=== PATIENT | female | born 1940 | race Caucasian/White ===

== ENCOUNTER 2024-02-11 15:49 | Inpatient (IN) | payer MEDICARE, BC, SELFPAY ==
[2024-02-11] VITALS (9 sets, daily range): BP systolic 90–130; BP diastolic 43–61; PULSE 70–83; BMI 22.8; BMI 21.8
--- NOTE | 2024-02-11 14:03 | ED.GENMED ---
History of Present Illness
General
Chief Complaint: Rectal Bleeding
Source: patient and family (Son)
Exam Limitations: none
Time Seen by Provider: 02/11/24 13:26
Nursing documentation reviewed up to this point in time: agreed with
Travel History
Have you had any contact with someone who has COVID-19?: No
Do you have any symptoms of coronavirus? Fever > 100 degrees, chills, cough, shortness of breath, sore throat, loss of taste or smell, muscle aches, or headache?: No
History of Present Illness
History of Present Illness:
83-year-old female with a past medical history of GERD, hemorrhoids, colitis, irritable bowel syndrome who presents to the emergency room from her assisted living facility at [facility]; she is accompanied by her son who presents for evaluation of
rectal bleeding. Patient notably had hip replacement after a hip fracture; this was done in [place] in early December, she spent a few weeks in rehab and returned back to her assisted living facility about 10 days ago. She presents today after an
episode of large-volume rectal bleeding this morning that was apparently witnessed by staff. Patient says she has had bleeding hemorrhoids in the past but usually small amount of blood today was apparently large-volume bright red blood mixed in
with stool. Sent to the emergency room for assessment. She has not had an additional episodes although she says during her initial bout she had multiple bowel movements while sitting on the toilet. She denies feeling dizzy, short of breath,
lightheaded. She does not have any chest pain. She does not have any abdominal pain. She denies being on any blood thinners. She denies any recent NSAID use; says that for pain control for her hip she has been using tramadol and Tylenol.
Past History
Past History
ED Past Medical History: GERD, Hypercholesterolemia and Other (Low back pain, osteoporosis, colitis, GERD, irritable bowel syndrome)
ED Past Surgical History: Gynecological
Patient has exhibited threatening behavior?: No
Social History
Tobacco: Non-smoker
Alcohol: None
Drug: None
Personal:
Living: assisted living
Employment: Retired
Family History
Family History: Other
Review of Systems
Review of Systems
Constitutional: Denies fever
Respiratory: Denies trouble breathing
Cardiac: Denies chest pain, palpitations or syncope
ABD/GI: Reports bloody stools; Denies abdominal pain, nausea or vomiting
: Denies flank pain
Musculoskeletal: Denies neck pain or back pain
Neurological: Denies dizzy, headache, weakness or numbness
Phy Exam
Physical Exam
Physical Exam:
General: Awake, alert, oriented x3; no acute distress
Head: Normocephalic, atraumatic
Eyes: Pale conjunctiva
Throat: Airway intact, handling secretions
Neck: Trachea midline, supple without meningismus
Lungs: Clear to auscultation bilaterally, no wheezing, rales, rhonchi
Heart: Tachycardic with regular rhythm, no murmurs, gallops, or rubs
Abd: Soft, non distended, nontender
Rectal: Patient has large external hemorrhoid no active bleeding, no stool in the rectal vault but there was some blood mixed with mucus
Neuro: No gross deficits
Skin: Somewhat pale, no rash
Extremities: Warm and well-perfused
Scores
Heart Failure Risk
Heart Failure Risk Score: Not Applicable
Heart Score for Chest Pain Patients
STEMI patient?: Not applicable
Withdrawal Assessment of Alcohol
Withdrawal Assessment Completed?: Not applicable
Course
Orders/Labs/Results
Orders:
Orders
02/11/24 14:09
Type+Screen Urgent
Complete Blood Count/With Diff Urgent
Comprehensive Metabolic Panel Urgent
PTT Urgent
Prothrombin Time Urgent
02/11/24 14:43
Blood Group&Type Urgent
BBK Wristband Number:
Abnormal Lab Results
02/11/24
14:09
RBC 3.23 L 10^6/uL
(4.20-5.40)
Hgb 9.2 L g/dL
(12.0-16.0)
Hct 28.6 L %
(37.0-47.0)
MCHC 32.2 L g/dL
(33.0-37.0)
Abs Immat Gran (auto) 0.1 H 10^3/uL
(0-0.05)
Absolute Neuts (auto) 7.6 H 10^3/uL
(1.4-6.5)
Absolute Lymphs (auto) 0.9 L 10^3/uL
(1.2-3.4)
Immature Gran % 1.0 H %
(0-0.5)
Neutrophils % 82.1 H %
(42.2-75.2)
Lymphocytes % 9.6 L %
(20.5-51.1)
BUN 28 H mg/dl
(7-17)
Glucose 122 H mg/dl
(70-99)
02/11/24 14:09
02/11/24 14:09
Vital Signs
Initial and Last Documented VS:
Initial Vital Signs
Temp Pulse Resp BP Pulse Ox
36.4 C 112 18 130/61 94
02/11/24 12:57 02/11/24 12:57 02/11/24 12:57 02/11/24 12:57 02/11/24 12:57
Last Documented Vital Signs
Temp Pulse Resp BP Pulse Ox
36.4 C 91 20 97/57 95
02/11/24 12:57 02/11/24 14:15 02/11/24 14:15 02/11/24 14:15 02/11/24 14:15
MDM/Problems Addressed
Differential Diagnosis Includes:
Lower GI bleed: Differential includes but not limited to hemorrhoidal bleed, diverticular bleed, AVM
MDM/Problems Addressed:
83-year-old female presents for evaluation of bright red blood per rectum this morning. Not on blood thinners. Tachycardic but normotensive otherwise normal vitals. Exam as above�on internal rectal exam she had no stool in the rectal vault but
did have some faint bright red blood mixed with mucus; she does have a large external hemorrhoid did not have any active bleeding noted. Plan to place an IV check labs including CBC and CMP, coags, type and screen. Will monitor closely reassess
after the above.
Labs reviewed: CBC shows anemia 9.2 down from prior value of 11.8 in 2021. Certainly her recent surgery could contribute to some anemia but given her GI bleeding today we will need to admit for monitoring of bleeding and serial hemoglobins. She is
above transfusion threshold at this point although she did come in with some mild tachycardia her heart rate is now in the 80s or 90s and she is normotensive�will hold on transfusion for now but I did consent patient for transfusion in case of need.
Case discussed with hospitalist for admission.
Chronic conditions affecting care:
Hemorrhoids
*Pulse Oximetry
Patient hypoxic: no
*Critical Care Note
Total Time (30-74mins, 75-104mins- exclusive of procedures): Not Applicable
Data Reviewed
Review of Other/Old Records Reveals: Labs and Records
Source: patient and family (Son)
Prescriptions/Medications Considered But Not Given:
Considered blood transfusion
Patient Management
Discussion with other providers: Hospitalist (Discussed with hospitalist)
Escalation/DeEscalation of care consider admission/obs:
Admission indicated
ED Attending Note
-
Portions of this chart may have been created with voice recognition software.� Occasional wrong word or��sound alike� substitutions may have occurred due to the inherent limitations of voice recognition software.
Discharge Plan
Departure
Patient Disposition: Admit
Date of Disposition: 02/11/24
Time of Disposition: 14:56
Admit to doctor: Divina
Presentation/result/management discussed w/ accepting MD/DO: Hospitalist
Discharge Problem:
Acute lower gastrointestinal bleeding
Prescriptions:
No Action
loperamide 2 MG capsule
2 mg PO Q4HPRN PRN (Reason: diarrhea)
acetaminophen [Tylenol Extra Strength] 500 MG tablet
1,000 mg PO Q6HPRN PRN (Reason: mild pain)
lisinopril 2.5 mg Tablet
2.5 mg PO DAILY
cholecalciferol (vitamin D3) 25 mcg (1,000 unit) Tablet
25 mcg PO DAILY
tramadol 50 mg tablet
50 mg PO BID PRN (Reason: hip pain)
Interventions
Interventions:
*Risk Screen - Suicide Last Done: 02/11/24 14:12
*General Assessment Last Done: 02/11/24 12:57
*Neglect/Abuse Screening Last Done: 02/11/24 14:12
*ED COVID-19 Vaccine History Last Done: 02/11/24 12:57
NS-Iyfxrg-Xbsatajqoy Assessment Last Done: 02/11/24 14:13
ED- Cardiac Assessment Last Done: 02/11/24 14:13
ED- Pulmonary Assessment Last Done: 02/11/24 14:13
[2024-02-11 14:32] LABS: % Basophils 0.2 % (0-2); % Eosinophils 0.3 % (0-6); % Lymphocytes 9.6 % (20.5-51.1); % Monocytes 6.8 % (1.7-9.3); % Neutrophils 82.1 % (42.2-75.2); Absolute Immature Granulocytes 0.1 10^3/uL (0-0.05); Absolute Lymphocytes 0.9 10^3/uL (1.2-3.4); Absolute Monocytes 0.6 10^3/uL (0.1-0.6); Absolute Neutrophils 7.6 10^3/uL (1.4-6.5); Hematocrit 28.6 % (37.0-47.0); Hemoglobin 9.2 g/dL (12.0-16.0); Mean Corp Hgb Conc. 32.2 g/dL (33.0-37.0); Mean Corpuscular Hgb 28.5 pg (27.0-31.0); Mean Corpuscular Volume 88.5 fL (81.0-99.0); Mean Platelet Volume 8.5 fL (7.4-10.4); Nucleated Red Blood Cells % 0 %; Platelet Count 369 10^3/uL (130-400); Red Blood Cell Count 3.23 10^6/uL (4.20-5.40); Red Cell Dist. Width 12.8 % (11.5-14.5); White Blood Cell Count 9.2 10^3/uL (4.8-10.8)
[2024-02-11 14:44] LABS: INR 1.06; PT 13.7 Sec (11.4-14.6)
[2024-02-11 14:45] LABS: APTT 29.4 Sec (23.4-35.0)
[2024-02-11 14:49] LABS: ALT (SGPT) 12 U/L (0-35); AST (SGOT) 18 U/L (14-36); Albumin 3.9 g/dl (3.5-5.0); Alkaline Phosphatase 75 U/L (38-126); Blood Urea Nitrogen 28 mg/dl (7-17); Calcium 9.8 mg/dl (8.4-10.2); Carbon Dioxide 29 mmol/L (22-30); Chloride 99 mmol/L (98-107); Estimated Creatinine Clearance 45 ml/min; Glucose 122 mg/dl (70-99); Potassium 3.5 mmol/L (3.5-5.1); Sodium 136 mmol/L (135-145); Total Bilirubin 0.5 mg/dl (0.2-1.3); Total Protein 6.7 g/dl (6.3-8.2); eGFR > 60.00
--- NOTE | 2024-02-11 15:09 | HPS.HSE ---
Addendum entered and electronically signed by Pino Alarcon DO 02/11/24 16:07:
Patient seen and examined and discussed with SITE MEDICAL DIRECTOR Brodie, and I agree with her note.
Gen-AAOx3, NAD, frail
HEENT-NC, AT, anicteric, clear oral mm
Neck-supple
CV-reg, no M, +S1/S2
Lungs-clear B/L
Abd-soft, NT, ND
Ext-no edema
Musculoskeletal-no cyanosis, clubbing
Skin-warm and dry, dry gangrene left heel
Neuro-grossly non-focal
Psych-calm, cooperative
Acute lower GI bleed -hemorrhoidal versus other etiology. Large external hemorrhoid noted by ED. Hemodynamically stable. Admit to MedSurg. Consult GI. Clear liquid diet.
Reportedly patient had a colonoscopy 5 years ago but was a poor prep and nondiagnostic. Information obtained by family.
Ideally should get her external hemorrhoid treated, can follow-up with colorectal surgery after discharge.
Acute blood loss anemia -suspect related to GI bleed as above. Hemoglobin 9.2. Will monitor. Transfuse if hemoglobin gets close to 7 or less.
Left heel dry gangrene/pressure wound -due to limited mobility. Check ABIs lower extremities. Consult podiatry and vascular surgery.
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 Mainly in the wheelchair.
Recent fall with left hip fracture -admitted to [facility] in December, required left total hip arthroplasty. Discharged to rehab on January 11, and recently discharged back to her assisted living facility.
Osteoporosis
Hyperlipidemia
GERD
IBS
DNR
Family updated on the phone.
Original Note:
Family Physician
-
Family Physician: ZAK Logan
Chief Complaint
-
Rectal bleed
History of Present Illness
83-year-old female with a past medical history of GERD, hemorrhoids, colitis, irritable bowel syndrome who presents to the emergency room from her assisted living facility at [facility] with bright red blood this morning. Patient denies any abdominal
pain nausea vomiting,. she denies feeling dizzy, short of breath, lightheaded.� She does not have any chest pain.� She denies being on any blood thinners.� She denies any recent NSAID use. Denies fever or chills, patient denies any dysuria
hematuria,
Hemoglobin 9.7. No active bleeding at this time. on internal rectal exam by ER physician ,she had no stool in the rectal vault but did have some faint bright red blood mixed with mucus
Admitting for further management
Medical History
Past Medical History
Past Medical History: Reports Other
Additional Past Medical History:
GERD
Hemorrhoid
Colitis
IBS
Past Surgical History: Reports Other
Additional Past Surgical History:
Left hip replacement
Hysterectomy
Social History
Tobacco: Non-smoker
Alcohol: None
Drug: None
Living: Alone
Family History
Family History: Not pertinent
Allergies / Home Medications
Allergies reflects when Allergies were last updated in [facility].
Home Medications with original date entered in [facility]
Allergy/Medication List:
Allergies
Allergy/AdvReac Type Severity Reaction Status Date / Time
aspirin Allergy Rectal Verified 02/11/24 13:01
Bleeding
Home Medications
acetaminophen 500 mg tablet (Tylenol Extra Strength) 1,000 mg PO Q6HPRN PRN mild pain 05/04/22
loperamide 2 mg capsule 2 mg PO Q4HPRN PRN diarrhea 05/04/22
cholecalciferol (vitamin D3) 25 mcg (1,000 unit) tablet 25 mcg PO DAILY Supplement 02/11/24
lisinopril 2.5 mg tablet 2.5 mg PO DAILY Blood Pressure 02/11/24
tramadol 50 mg tablet 50 mg PO BID PRN hip pain 02/11/24
Review of Systems
-
Constitutional: Reports No Symptoms
EENT: Reports No Symptoms
Respiratory: Reports No Symptoms
Cardiac: Reports No Symptoms
Abdomen/GI: Reports Bloody Stools
: Reports No Symptoms
Musculoskeletal: Reports No Symptoms
Skin: Reports No Symptoms
Neurological: Reports No Symptoms
Endocrine: Reports No Symptoms
Hematologic/Lymphatic: Reports No Symptoms
Psych: Reports No Symptoms
Physical Exam
Vital Signs
Vital Signs
Temp Pulse Resp BP Pulse Ox
97.6 F 85 23 99/55 93
02/11/24 12:57 02/11/24 15:00 02/11/24 15:00 02/11/24 15:00 02/11/24 14:45
Physical Exam
General: Well Developed, Well Nourished and No Apparent Distress
HEENT: NormoCephalic, Moist mucous membranes and Atraumatic
Respiratory: Clear
Cardiac: S1/S2 and Regular Rhythm; No Murmur or Rub
GI: Soft, Non Tender, Non Distended and Normal Bowel Sounds; No Organomegaly
Rectal: Deferred by Provider
Musculoskeletal: No Clubbing, No Cyanosis and No Edema
Skin: No Rash
Neuro: AO x 3 and Nonfocal/grossly intact
Psych: Calm
Laboratory Results
-
02/11/24 14:09
02/11/24 14:09
Laboratory Results
PT 13.7 Sec (11.4-14.6) 02/11/24 14:09
INR 1.06 02/11/24 14:09
APTT 29.4 Sec (23.4-35.0) 02/11/24 14:09
Total Bilirubin 0.5 mg/dl (0.2-1.3) 02/11/24 14:09
AST 18 U/L (14-36) 02/11/24 14:09
ALT 12 U/L (0-35) 02/11/24 14:09
Alkaline Phosphatase 75 U/L (38-126) 02/11/24 14:09
Data Reviewed
-
Lab Data: Labs Reviewed by me
Impression/Plan
-
# acute lower GI bleed
-History of large hemorrhoids
-Hemoglobin 9.2
-Continue to trend hemoglobin
-Clear liquid diet
-GI consulted
# Acute blood loss anemia likely from GI bleed versus recent hip replacement
-Hemoglobin 9.2
-Continue to monitor
-Transfuse if hemoglobin less than 7
-Patient consented in ER
# Essential hypertension
-Hypotensive in ER
-Continue lisinopril with hold parameters
# Recent left hip replacement
-Healing very well
-Tylenol, tramadol continued
-obtain medical records from [place]
-PT consult
#left heel necrotic wound
-wound, podiatry, vascular consulted
-obtaining BHARATI
# DVT prophylaxis
-SCD
# CODE STATUS
-DNR
--- NOTE | 2024-02-11 15:45 | CON.GI ---
Addendum entered and electronically signed by Rosalio Collier MD 02/11/24 20:05:
I saw and examined the patient.
The NATUROPATHIC PHYSICIAN's note was reviewed and I agree with the note.
painless rectal bleeding x1 - possible DD : hemorrhoids vs diverticular bleed etc
recent hip surgery
constipation/ diarrhea . hx of IBS
plan
continue monitor H/H
anusol HC suppository
clear liquid diet
if Hb stable and no bleeding ok to advance diet
Patient / patient's son would like to hold off on colonoscopy for now.
Original Note:
Consultation
-
Date/Time Consultation Requested: 02/11/24 161
Date/Time Consultation Performed: 02/11/24 164
Requesting Provider: Pino Alarcon DO
Performing Provider: ZAK Page, Rosalio Collier MD
Reason for Consultation: GI bleeding
Medical History
Chief Complaint / HPI
Chief Complaint: rectal bleeding
History of Present Illness:
Pt is a 83yo presents with hx colon polyps, sheldon's esophagus, HH, IBS, GERD, prior c-diff, colitis, with recent hip replacement about 3 weeks ago. She returned to [facility] assisted living about 1 week ago and now noted with onset of rectal
bleeding. Pt states she will see rectal bleeding about 1 time per week with small amount of blood on paper. This am was noted with blood in diaper and larger volume of blood in toilet than usual bleeding. Pt admits to some chronic diarrhea and
constipation but recent increased constipation with recent hip surgery.
Pt otherwise admits to some chronic dysphagia and few lbs wt gain with recent rehab stay. She denies current GERD, abdominal pain, or black stools. Last colonoscopy 2016(Dr. Dixon) with small adenoma and hemorrhoids. no evidence of microscopic
colitis. EGD 2016 sheldon's, repeat EGD 2019 Dr. Pizano- (reports not reviewed).
Past Medical History
Past Medical History: GERD, Renal Failure (renal stones), Psychiatric (depression/anxiety ) and Other (sheldon's esophagus, colon polyps, c-diff, headaches, osteoporosis, rectal bleeding, colitis, IBS, arthritis, hemorrhoids )
Past Surgical History: Gynecological (hysterectomy), Orthopedic (left hip replacement ) and Other (growth on nose removal)
Social History
Tobacco: Non-Smoker
Alcohol: None
Drug: None
Living: Assisted Living
Employment: Retired
Family History
Family History: Other (brother with some type of CA, no family hx colon Ca that she could recall)
Allergies / Home Medications
Allergy/AdvReac Type Severity Reaction Status Date / Time
aspirin Allergy Rectal Verified 02/11/24 13:01
Bleeding
Medication Instructions Recorded
acetaminophen 500 mg tablet 1,000 mg PO Q6HPRN PRN mild pain 05/04/22
(Tylenol Extra Strength)
loperamide 2 mg capsule 2 mg PO Q4HPRN PRN diarrhea 05/04/22
cholecalciferol (vitamin D3) 25 25 mcg PO DAILY Supplement 02/11/24
mcg (1,000 unit) tablet
lisinopril 2.5 mg tablet 2.5 mg PO DAILY Blood Pressure 02/11/24
tramadol 50 mg tablet 50 mg PO BID PRN hip pain 02/11/24
Review of Systems
-
History Source: Patient
Constitutional: Reports Weight Gain (few lbs gain with rehab)
EENT: Reports No Symptoms
Respiratory: Reports No Symptoms
Cardiac: Reports No Symptoms
Abdomen/GI: Reports Diarrhea, Constipated (recently worse ) and Bloody Stools
: Reports No Symptoms
Musculoskeletal: Reports Other (hip mild discomfort recovering from surgery)
Skin: Reports No Symptoms
Neurological: Reports No Symptoms
Endocrine: Reports No Symptoms
Hematologic/Lymphatic: Reports Bleeding
Vital Signs
Temp Pulse Resp BP Pulse Ox
97.6 F 85 23 99/55 93
02/11/24 12:57 02/11/24 15:00 02/11/24 15:00 02/11/24 15:00 02/11/24 14:45
Physical Exam
Exam
General: Well Developed, Well Nourished and No Apparent Distress
HEENT: Normocephalic and Anicteric
Respiratory: Clear
Cardiac: Regular Rhythm
GI: Soft, Non Tender and Non Distended
Rectal: Other (large hemorrhoids with red spot no active bleeding trace brown stool in rectal vault no impaction)
Genito-urinary: No Costovertebral Tender
Musculoskeletal: No Clubbing and No Cyanosis
Skin: Warm and Dry
Neuro: Awake, Alert and AO x 3
Psych: Calm
Results
WBC 9.2 10^3/uL (4.8-10.8) 02/11/24 14:09
Hgb 9.2 g/dL (12.0-16.0) L 02/11/24 14:09
Hct 28.6 % (37.0-47.0) L 02/11/24 14:09
MCV 88.5 fL (81.0-99.0) 02/11/24 14:09
Plt Count 369 10^3/uL (130-400) 02/11/24 14:09
Absolute Neuts (auto) 7.6 10^3/uL (1.4-6.5) H 02/11/24 14:09
PT 13.7 Sec (11.4-14.6) 02/11/24 14:09
INR 1.06 02/11/24 14:09
APTT 29.4 Sec (23.4-35.0) 02/11/24 14:09
Sodium 136 mmol/L (135-145) 02/11/24 14:09
Potassium 3.5 mmol/L (3.5-5.1) 02/11/24 14:09
Chloride 99 mmol/L (98-107) 02/11/24 14:09
Carbon Dioxide 29 mmol/L (22-30) 02/11/24 14:09
BUN 28 mg/dl (7-17) H 02/11/24 14:09
Creatinine 0.7 mg/dL (0.6-1.0) 02/11/24 14:09
Calcium 9.8 mg/dl (8.4-10.2) 02/11/24 14:09
Total Bilirubin 0.5 mg/dl (0.2-1.3) 02/11/24 14:09
AST 18 U/L (14-36) 02/11/24 14:09
ALT 12 U/L (0-35) 02/11/24 14:09
Alkaline Phosphatase 75 U/L (38-126) 02/11/24 14:09
Prior GI Procedures:
EGD: 2016 [facility], repeat EGD 2019 Dr. Pizano- (reports not reviewed).
colonoscopy 2017(Dr. Dixon) with small adenoma and hemorrhoids. no evidence of microscopic colitis.
Assessment / Plan
-
Pt is a 83yo presents with hx colon polyps, sheldon's esophagus, HH, IBS, GERD, prior c-diff, colitis, with recent hip replacement about 3 weeks ago. She returned to [facility] assisted living about 1 week ago and now noted with onset of rectal
bleeding. Pt states she will see rectal bleeding about 1 time per week with small amount of blood on paper. This am was noted with blood in diaper and larger volume of blood in toilet than usual bleeding. Pt admits to some chronic diarrhea and
constipation but recent increased constipation with recent hip surgery.
-rectal bleeding
-recent hip replacement
other medical problems:
-colon polyps
-barrrett's esophagus
-IBS
-GERD
-hx c-diff
-colitis
PLAN:
Etiology of bleeding related to local source as hemorrhoids with noted red spot in exam and recent constipation vs diverticular bleed vs other
will add anusol BID and Miralax daily
ok for clear diet monitor for recurrent bleeding overnight
trend hbg
cont PPI daily
if bleeding resolved OP follow with Dr. Pizano or Dr. Collier for sheldon's and IBS follow up
will follow
-
-
Thank you for consultation and allowing me to participate in the patient's care. Please call the transformation architect GI physician during the after hours with any questions or concerns.
--- NOTE | 2024-02-11 16:33 | CON.VAS ---
Addendum entered and electronically signed by Pete Ornelas III, MD 02/11/24 17:15:
This patient was seen and examined with ZAK Solares and ZAK Barillas. I agree with the history and physical exam as well as the assessment and plan. I have the following additions:
Necrotic left lateral heel ulcer
Appears to be pressure related
At rehab following hip replacement
On exam her foot is warm and pink
Easily palpable DP pulses bilaterally
Easily palpable popliteal pulses bilaterally
Robust Doppler signals at the PT location bilaterally, nonpalpable bilaterally
The left heel eschar is necrotic and dry
No wounds on the toes
No erythema
No drainage
No odor
Obtain lower extremity arterial studies in the vascular lab, arterial duplex/BHARATI/TBI
Prevalon boots at all times to both feet
Podiatry consult
Will follow along and make additional recommendations once studies are back
Signed:
Pete Ornelas III, MD
[facility] Vascular Surgery
[phone] (xabg)
Original Note:
Consultation
Consultation Request
Performing Provider: Johnson
Reason for Consultation: Heel wound eval
Medical History
-
Chief Complaint: GI bleed
History of Present Illness:
83-year-old female with a past medical history of GERD, colitis, irritable bowel syndrome who presents to the emergency room from her assisted living facility at [facility] with bright red blood this morning. Patient denies any abdominal pain nausea
vomiting. While being evaluated in the ER patient was noted to have a dry necrotic left heel dry wound. Vascular consult for this finding
Patient seen at bedside in the ER with Dr. Ornelas. Patient states she noticed the wound recently. They have had her in boots since noticing the wound. Patient denies history of PAD. Denies prior lower extremity interventions. Denies prior wounds
with difficulty healing.
Past Medical History
Past Medical History: Other (GERD, Hemorrhoid, Colitis, IBS)
Past Surgical History: Other (Left hip replacement, Hysterectomy)
Social History
Tobacco: Non-Smoker
Alcohol: None
Drug: None
Living: [facility] (s/p hip replacement)
Family History
Family History: Reviewed & Not Pertinent
Allergies / Home Medications
Allergy/AdvReac Type Severity Reaction Status Date / Time
aspirin Allergy Rectal Verified 02/11/24 13:01
Bleeding
Medication Instructions Recorded Confirmed Type
acetaminophen 500 mg tablet 1,000 mg PO Q6HPRN PRN mild pain 05/04/22 02/11/24 History
(Tylenol Extra Strength)
loperamide 2 mg capsule 2 mg PO Q4HPRN PRN diarrhea 05/04/22 02/11/24 History
cholecalciferol (vitamin D3) 25 25 mcg PO DAILY Supplement 02/11/24 02/11/24 History
mcg (1,000 unit) tablet
lisinopril 2.5 mg tablet 2.5 mg PO DAILY Blood Pressure 02/11/24 02/11/24 History
tramadol 50 mg tablet 50 mg PO BID PRN hip pain 02/11/24 02/11/24 History
Review of Systems
-
History Source: Patient
All other systems: Negative unless noted
Constitutional: Reports No Symptoms
EENT: Reports No Symptoms
Respiratory: Reports No Symptoms
Cardiac: Reports No Symptoms
Vascular: Denies Leg Pain / Claudication
Abdomen/GI: Reports No Symptoms
: Reports No Symptoms
Musculoskeletal: Reports No Symptoms
Skin: Reports Other (Left heel wound)
Neurological: Reports No Symptoms
Endocrine: Reports No Symptoms
Physical Exam
Vital Signs
Temp Pulse Resp BP Pulse Ox
97.6 F 93 13 100/45 93
02/11/24 12:57 02/11/24 16:15 02/11/24 16:15 02/11/24 16:00 02/11/24 14:45
Lab Results
02/11/24 14:09
02/11/24 14:09
Physical Exam
General: No Apparent Distress and Comfortable
HEENT: Normocephalic and Atraumatic
Respiratory: Non Labored Respirations
Cardiac: Negative JVD
GI: Soft, Non Tender and Non Distended
Musculoskeletal: No Clubbing, No Cyanosis and No Edema
Skin: Warm and Other (Left heel with dry necrosis size this over dollar)
Neuro: Awake, Alert and Oriented
Psych: Calm
Pulses: Bilateral Femoral: +2, Bilateral Popliteal: +2, Bilateral Dorsalis Pedis: Doppler and Bilateral Posterior Tibial: Doppler
Assessment / Plan
-
83-year-old female here with GI bleed, vascular consult for left heel necrotic wound
Plan:
-Arterial ultrasounds
-Will follow-up with plan after studies complete
-Elevate heels, heels will should be in Prevalon boots at all times unless ambulating
[2024-02-11] MEDS: MIRALAX PO (17:59)
[2024-02-11] MEDS: TYLENOL 1000 MG PO (19:12)
[2024-02-11] MEDS: NSS (PRESERVATIVE FREE) 10 ML IV (19:54)
[2024-02-11] MEDS: PROTONIX IV 40 MG IV (19:54)
[2024-02-11] MEDS: ANUSOL HC RECTAL (20:01)
--- NOTE | 2024-02-11 21:12 | W.PN.POD ---
Today's Communication
- Today's Communication
podiatry consult wound left heel
Assessment / Plan
- -
necrotic heel left foot lateral aspect
unstageable
keep foot elevated, keep pressure off heel
wear prevalon boots at all times
Suggest: darco pressure relief surgical shoe when ambulating
consult wound care for dressing
Subjective/Objective
- Subjective
patient evaluated in ER and wound left heel was noted
- Objective
Temp Pulse Resp BP Pulse Ox
98.3 F 83 18 101/51 95
02/11/24 20:00 02/11/24 20:00 02/11/24 20:00 02/11/24 20:00 02/11/24 20:00
02/11/24 14:09
Vital Signs and Lab results were reviewed.
eschar noted dark, necrotic and dry
left heel necrotic lateral aspect
lateral to posterior heel
no drainage
no infection or inflammation
unstageable, 1 1/2 in x 2 in.
due to pressure after left hip replacement
in rehab
pulses DP +1/4 PT +1/4 both feet
warm, no edema
[2024-02-11 21:34] LABS: Hematocrit 24.8 % (37.0-47.0); Hemoglobin 8.2 g/dL (12.0-16.0)
[2024-02-12 03:49] VITALS: BP 111/52; BP 99/52; PULSE 71
[2024-02-12 06:28] LABS: Hematocrit 27.2 % (37.0-47.0); Hemoglobin 8.8 g/dL (12.0-16.0); Mean Corp Hgb Conc. 32.4 g/dL (33.0-37.0); Mean Corpuscular Hgb 28.9 pg (27.0-31.0); Mean Corpuscular Volume 89.2 fL (81.0-99.0); Mean Platelet Volume 8.6 fL (7.4-10.4); Platelet Count 329 10^3/uL (130-400); Red Blood Cell Count 3.05 10^6/uL (4.20-5.40); Red Cell Dist. Width 12.8 % (11.5-14.5); White Blood Cell Count 6.9 10^3/uL (4.8-10.8)
[2024-02-12 06:52] LABS: Blood Urea Nitrogen 22 mg/dl (7-17); Carbon Dioxide 28 mmol/L (22-30); Chloride 100 mmol/L (98-107); Estimated Creatinine Clearance 53 ml/min; Glucose 102 mg/dl (70-99); Potassium 3.5 mmol/L (3.5-5.1); Sodium 135 mmol/L (135-145); eGFR > 60.00
[2024-02-12 07:45] VITALS: BP 115/57; BP 124/60; PULSE 74; PULSE 76
[2024-02-12] MEDS: COMPAZINE 5 MG IV (08:32)
[2024-02-12] MEDS: NSS (PRESERVATIVE FREE) 10 ML IV ×2 (08:32→20:26)
[2024-02-12] MEDS: ZESTRIL 2.5 MG PO (08:32)
[2024-02-12] MEDS: PROTONIX IV 40 MG IV ×2 (08:32→20:27)
[2024-02-12] MEDS: MIRALAX PO (08:36)
[2024-02-12] MEDS: ANUSOL HC 25 MG RECTAL ×2 (08:37→20:26)
[2024-02-12] MEDS: TYLENOL 1000 MG PO ×2 (10:14→17:43)
--- NOTE | 2024-02-12 10:23 | W.PN.HOSP.TC ---
Today's Communication/Plan
-
Monitor hemoglobin
Advance diet as tolerated
Await BHARATI
PT/OT
Assessment / Plan
Assessment / Plan
Gen-AAOx3, NAD
HEENT-NC, AT, anicteric, clear oral mm
Neck-supple
CV-reg, no M, +S1/S2
Lungs-clear B/L
Abd-soft, NT, ND
Ext-no edema
Musculoskeletal-no cyanosis, clubbing, bilateral Prevalon boots on legs
Skin-warm and dry
Neuro-grossly non-focal
Psych-calm, cooperative
Acute lower GI bleed -hemorrhoidal versus other etiology.� Large external hemorrhoid noted by ED.� Hemodynamically stable.� No further bleeding in the hospital as per nursing. Advance diet as tolerated. GI consult noted. Holding off on
colonoscopy per patient and family wishes.
Reportedly patient had a colonoscopy 5 years ago but was a poor prep and nondiagnostic.� Information obtained by family.
Ideally should get her external hemorrhoid treated, can follow-up with colorectal surgery after discharge.
Acute blood loss anemia -suspect related to GI bleed as above.� Hemoglobin 9.2 on admission, 8.8 this morning.
Left heel dry gangrene/pressure wound -due to limited mobility.� Check ABIs lower extremities.� Continue Prevalon boots, offloading. Vascular and podiatry input noted.
Functional paraplegia -suspect due to severe deconditioning, frailty, aging.� Mainly in the wheelchair.
Recent fall with left hip fracture -admitted to [facility] in December, required left total hip arthroplasty.� Discharged to rehab on January 11, and recently discharged back to her assisted living facility.
Osteoporosis
Hyperlipidemia
GERD
IBS
DNR
Dispo -anticipate discharge back to assisted living facility when stable. Await PT/OT.
Anticipated Discharge: 24 - 48 hours
Subjective/Interval History
-
Date of Service: February 12, 2024
Patient seen and examined. No complaints. Eager to start eating.
Objective Data
-
Labs:
Laboratory Results
02/12/24 02/12/24
05:48 13:00
WBC 6.9
Hgb 8.8 L Pending
Hct 27.2 L Pending
Plt Count 329
Sodium 135
Potassium 3.5
Chloride 100
Carbon Dioxide 28
BUN 22 H
Creatinine 0.6
Glucose 102 H
Calcium 9.0
Vital Signs:
Vital Signs
Temp Pulse Resp BP Pulse Ox
98.1 F 76 16 124/60 94
02/12/24 07:45 02/12/24 08:32 02/12/24 07:45 02/12/24 08:32 02/12/24 07:45
I&O
02/11/24 02/12/24 02/13/24
06:59 06:59 06:59
Intake Total 840 / 840
Balance 840 / 840
Review of Systems
-
History Source: Patient
All other systems: Reviewed and negative
[2024-02-12 11:30] VITALS: BP 123/58; BP 128/59; PULSE 82
[2024-02-12] MEDS: ULTRAM 50 MG PO (12:08)
--- NOTE | 2024-02-12 12:47 | W.PN.GI.CBS2 ---
Today's Communication / Plan
-
Advance diet
Assessment / Plan
-
Pt is a 83yo presents with hx colon polyps, sheldon's esophagus, HH, IBS, GERD, prior c-diff, colitis, with recent hip replacement about 3 weeks ago. She returned to [facility] assisted living about 1 week ago and now noted with onset of rectal
bleeding. Pt states she will see rectal bleeding about 1 time per week with small amount of blood on paper. This am was noted with blood in diaper and larger volume of blood in toilet than usual bleeding. Pt admits to some chronic diarrhea and
constipation but recent increased constipation with recent hip surgery.
-rectal bleeding x1 -�possible DD : hemorrhoids vs diverticular bleed etc
-recent hip replacement
other medical problems:
-colon polyps
-barrrett's esophagus
-IBS
-GERD
-hx c-diff
-colitis
PLAN:
Okay to advance diet
Continue anusol BID and Miralax daily
Avoid constipation
Reviewed with patient/patient's son yesterday-they would like to hold off on colonoscopy
OP follow with Dr. Pizano ( previous GI ) for sheldon's and IBS follow up
GI will sign off. Please call us back if any questions.
Total Time Spent with Patient (in minutes): 35
Subjective
Subjective
Date of Service: February 12, 2024
No further bleeding. Feeling better
Objective
Data Reviewed
Laboratory Data:
Laboratory Results
02/12/24 13:00
02/12/24 05:48
Laboratory Results
PT 13.7 Sec (11.4-14.6) 02/11/24 14:09
INR 1.06 02/11/24 14:09
APTT 29.4 Sec (23.4-35.0) 02/11/24 14:09
Total Bilirubin 0.5 mg/dl (0.2-1.3) 03/22/24 14:09
AST 18 U/L (14-36) 02/11/24 14:09
ALT 12 U/L (0-35) 02/11/24 14:09
Alkaline Phosphatase 75 U/L (38-126) 02/11/24 14:09
Vital Signs and I&O:
Vital Signs
Temp Pulse Resp BP Pulse Ox
98.3 F 82 16 128/59 96
02/12/24 11:30 02/12/24 11:30 02/12/24 11:30 02/12/24 11:30 02/12/24 11:30
I&O
02/11/24 02/12/24 02/13/24
06:59 06:59 06:59
Intake Total 840 / 840
Balance 840 / 840
Physical Exam
Physical Exam
GI: Soft, Non Distended and Non Tender
--- NOTE | 2024-02-12 13:53 | CM ---
Patient seen bedside, initial assessment completed. Patient reports she resides at [facility], reports using a wheelchair, walker, and rollator. Patient reports having PT/OT at [facility], history with SNF but cannot remember where.
Patient reports she has a son who lives in [place]. Patient confirms PCP Rafia Chavira but will be switching to a new PCP eventually, pharmacy [facility] on [address].
CM called [facility] to speak to patients nurse, informed that nurses are not here on weekends and to call back Wednesday morning. CM will continue to follow for discharge planning needs.
Plan; return to [facility], watch for PT/OT recommendations.
[2024-02-12 15:45] VITALS: BP 101/51; BP 108/53; PULSE 82; PULSE 83
[2024-02-12 19:35] VITALS: BP 106/53; BP 89/46; PULSE 86; PULSE 87
[2024-02-12 23:09] VITALS: BP 89/54; BP 96/52; PULSE 68; PULSE 70
[2024-02-13] VITALS (7 sets, daily range): BP systolic 107–124; BP diastolic 54–65; BMI 21.8
[2024-02-13] MEDS: NSS (PRESERVATIVE FREE) 10 ML IV (07:50)
[2024-02-13] MEDS: ZESTRIL 2.5 MG PO (07:50)
[2024-02-13] MEDS: ANUSOL HC 25 MG RECTAL ×2 (07:50→19:23)
[2024-02-13] MEDS: PROTONIX IV 40 MG IV (07:50)
[2024-02-13] MEDS: MIRALAX 17 GRAMS PO (07:50)
[2024-02-13 07:52] LABS: Hematocrit 26.8 % (37.0-47.0); Hemoglobin 8.5 g/dL (12.0-16.0); Mean Corp Hgb Conc. 31.7 g/dL (33.0-37.0); Mean Corpuscular Hgb 28.7 pg (27.0-31.0); Mean Corpuscular Volume 90.5 fL (81.0-99.0); Mean Platelet Volume 8.5 fL (7.4-10.4); Platelet Count 357 10^3/uL (130-400); Red Blood Cell Count 2.96 10^6/uL (4.20-5.40); Red Cell Dist. Width 12.7 % (11.5-14.5); White Blood Cell Count 6.2 10^3/uL (4.8-10.8)
[2024-02-13 08:25] LABS: Blood Urea Nitrogen 19 mg/dl (7-17); Calcium 9.2 mg/dl (8.4-10.2); Carbon Dioxide 29 mmol/L (22-30); Chloride 100 mmol/L (98-107); Estimated Creatinine Clearance 53 ml/min; Glucose 104 mg/dl (70-99); Potassium 3.7 mmol/L (3.5-5.1); Sodium 135 mmol/L (135-145); eGFR > 60.00
--- NOTE | 2024-02-13 09:29 | W.PN.HOSP.TC ---
Today's Communication/Plan
-
Continue current care
Assessment / Plan
Assessment / Plan
Gen-AAOx3, NAD
HEENT-NC, AT, anicteric, clear oral mm
Neck-supple
CV-reg, no M, +S1/S2
Lungs-clear B/L
Abd-soft, NT, ND
Ext-no edema
Musculoskeletal-no cyanosis, clubbing, bilateral Prevalon boots on legs
Skin-warm and dry
Neuro-grossly non-focal
Psych-calm, cooperative
Acute lower GI bleed -hemorrhoidal versus other etiology.� Large external hemorrhoid noted by ED.� Hemodynamically stable.� No further bleeding in the hospital as per nursing. Advance diet as tolerated. GI consult noted. Holding off on
colonoscopy per patient and family wishes.
Reportedly patient had a colonoscopy 5 years ago but was a poor prep and nondiagnostic.� Information obtained by family.
Ideally should get her external hemorrhoid treated, can follow-up with colorectal surgery after discharge.
Acute blood loss anemia -suspect related to GI bleed as above.� Hemoglobin 9.2 on admission, 8.5 this morning, relatively stable.
Left heel dry gangrene/pressure wound -due to limited mobility.� Check ABIs lower extremities.� Continue Prevalon boots, offloading. Vascular and podiatry input noted. Surgical shoe at bedside.
Functional paraplegia -suspect due to severe deconditioning, frailty, aging.� Mainly in the wheelchair.
Recent fall with left hip fracture -admitted to [facility] in December, required left total hip arthroplasty.� Discharged to rehab on January 11, and recently discharged back to her assisted living facility.
Osteoporosis
Hyperlipidemia
GERD
IBS
DNR
Dispo -ideally needs to go to SNF on discharge but she is refusing. Wants to go home tomorrow.
Anticipated Discharge: Within 24 hours
Subjective/Interval History
-
Date of Service: February 13, 2024
Patient seen and examined. Denies further bleeding. No complaints.
Objective Data
-
Labs:
Laboratory Results
02/13/24
06:55
WBC 6.2
Hgb 8.5 L
Hct 26.8 L
Plt Count 357
Sodium 135
Potassium 3.7
Chloride 100
Carbon Dioxide 29
BUN 19 H
Creatinine 0.5 L
Glucose 104 H
Calcium 9.2
Vital Signs:
Vital Signs
Temp Pulse Resp BP Pulse Ox
97.2 F 75 16 114/54 95
02/13/24 07:21 02/13/24 07:50 02/13/24 07:21 02/13/24 07:50 02/13/24 07:21
I&O
02/12/24 02/13/24 02/14/24
06:59 06:59 06:59
Intake Total 840 / 840 1020 / 1020
Balance 840 / 840 1020 / 1020
Review of Systems
-
History Source: Patient
All other systems: Reviewed and negative
--- NOTE | 2024-02-13 14:42 | CM ---
Addendum entered by Darling Healy 02/13/24 16:24:
CM met with patient and son Gerry, patient very anxious she will not be able to return to [facility]. CM reports that CM will call patients nurse at [facility] tomorrow to discuss patients PLOF and ability to accept patient back. Patient son reports that
patient is most likely baseline, but explained to patient that she is not being evicted from [facility] and that they might want patient to go to rehab for a short period of time before returning.
Original Note:
Patient seen bedside, discussed PT recommendations of SNF, patient reprots she just was discharged from a SNF and does not want to return. CM discussed assisted living facility will likely want patient to be close to baseline in order to return. CM
spoke with patients son, Mateus, Mateus is not opposed to patient going to a SNF if covered by insurance. Per Mateus, patient was discharged from [facility] after 21 days as patient was not making further progress in therapy. CM will call to speak to
patients nurse at [facility] tomorrow to discuss patients PLOF and ability to patient to return. CM will continue to follow for discharge planning needs.
Plan; patient would like to return to [facility], need to confirm with [facility] they can accept pt back.
[2024-02-13] MEDS: TYLENOL 1000 MG PO ×2 (16:00→23:33)
[2024-02-13] MEDS: COMPAZINE 5 MG IV ×2 (16:59→23:56)
--- NOTE | 2024-02-13 17:00 | PTCARENOTE ---
Pt. c/o nausea and vomiting, pt. with approx. 100ml emesis of undigested food. Compazine given as ordered. Will continue to monitor and report on pt.
[2024-02-14] VITALS (7 sets, daily range): BP systolic 93–138; BP diastolic 47–82
[2024-02-14 08:07] LABS: Hematocrit 28.6 % (37.0-47.0); Mean Corp Hgb Conc. 31.5 g/dL (33.0-37.0); Mean Corpuscular Hgb 28.3 pg (27.0-31.0); Mean Corpuscular Volume 89.9 fL (81.0-99.0); Mean Platelet Volume 8.5 fL (7.4-10.4); Platelet Count 349 10^3/uL (130-400); Red Blood Cell Count 3.18 10^6/uL (4.20-5.40); Red Cell Dist. Width 12.6 % (11.5-14.5); White Blood Cell Count 6.6 10^3/uL (4.8-10.8)
[2024-02-14 08:37] LABS: Blood Urea Nitrogen 18 mg/dl (7-17); Calcium 9.6 mg/dl (8.4-10.2); Chloride 102 mmol/L (98-107); Potassium 3.7 mmol/L (3.5-5.1); Sodium 135 mmol/L (135-145)
[2024-02-14 08:47] LABS: Carbon Dioxide 27 mmol/L (22-30); Estimated Creatinine Clearance 53 ml/min; Glucose 103 mg/dl (70-99); eGFR > 60.00
[2024-02-14] MEDS: ZESTRIL 2.5 MG PO (09:42)
[2024-02-14] MEDS: ANUSOL HC 25 MG RECTAL ×2 (09:43→21:16)
[2024-02-14] MEDS: MIRALAX PO (09:44)
--- NOTE | 2024-02-14 11:13 | WOUNDNOTE ---
L HEEL WITH PHOTO FLASH
--- NOTE | 2024-02-14 11:15 | WOUNDNOTE ---
WON RN note: Patient admitted with acute lower gastrointestinal bleed.
See H&P for complete history.
PMH: L hip replacement 12/2023, L heel unstageable PI, Colitis, osteoporosis, skin cancer and depression.
Wound Location and type/assessment: Patient admitted with: Dry eschar to L heel, unstageable PI vs dried up blood blister. R medial ankle with small dry flat blood blister. R heel intact. Palpable pedal pulses both feet, no edema. Using Prevalon
offloading heel boot when in bed and Darco heel shoe provided by Valentín when sitting. Nurse Nathalie assisted with care, states patient just got oob to chair, sacrum is intact. R BHARATI 1.12, TBI 0.67, L BHARATI 1.05, TBI 0.60. Noncompressible at posterior
tibial artery location with monophasic wf. Vascular and podiatry following.
Appetite: Good, encouraged protein in diet.
Pressure redistribution devices in place: Accumax, TruVue lite heel offloading boot.
Plan: Silicone foam applied to L heel. Skin prep to R medial ankle. Continue offloading devices to heel per Dr. Giles. Notified Dr. Steven that X Ray/MRI not ordered and to consider to rule out osteomyelitis. Confirmed local wound care.
Updated nurse, care plan and will follow as needed.
Note to case management of equipment requested for discharge: VN if doesn't already have.
Recommend follow up with podiatry and vascular upon discharge.
--- NOTE | 2024-02-14 16:22 | W.PN.HOSP.TC ---
Today's Communication/Plan
-
Stool studies if has more diarrhea
After that we can restart loperamide which patient takes at home
Assessment / Plan
Assessment / Plan
CVS: S1-S2 normal
Chest: CTA B/L
Abdomen: Soft, NT , Bowel sounds present
Extremities: No edema
Had 4 episodes of BM
#Acute lower GI bleed -hemorrhoidal versus other etiology.� Large external hemorrhoid noted by ED.� Hemodynamically stable.� No further bleeding in the hospital as per nursing. Advance diet as tolerated. GI consult noted. Holding off on
colonoscopy per patient and family wishes.
Reportedly patient had a colonoscopy 5 years ago but was a poor prep and nondiagnostic.� Information obtained by family.
Ideally should get her external hemorrhoid treated, can follow-up with colorectal surgery after discharge.
Loose stools- Check Stool studies
#Acute blood loss anemia -suspect related to GI bleed as above.� Hemoglobin 9.2 on admission, 9 this morning, relatively stable.
#Left heel dry gangrene/pressure wound -due to limited mobility.�
Continue Prevalon boots, offloading. Vascular and podiatry input noted. Surgical shoe at bedside.
BHARATI within normal limits TBI reduced
X-ray without any bone changes
#Functional paraplegia -suspect due to severe deconditioning, frailty, aging.� Mainly in the wheelchair.
#Recent fall with left hip fracture -admitted to [facility] in December, required left total hip arthroplasty.� Discharged to rehab on January 11, and recently discharged back to her assisted living facility.
#Osteoporosis
#Hyperlipidemia
#Chronic pain on tramadol
#GERD/Pantoja's esophagus
#IBS-on loperamide as outpatient
#DNR
Dispo -ideally needs to go to SNF on discharge but she is refusing. Wants to go home tomorrow.
Discussed with nursing at bedside
Anticipated Discharge: Within 24 hours
Subjective/Interval History
-
Date of Service: February 14, 2024
Objective Data
-
Labs:
Laboratory Results
02/14/24
07:39
WBC 6.6
Hgb 9.0 L
Hct 28.6 L
Plt Count 349
Sodium 135
Potassium 3.7
Chloride 102
Carbon Dioxide 27
BUN 18 H
Creatinine 0.5 L
Glucose 103 H
Calcium 9.6
Vital Signs:
Vital Signs
Temp Pulse Resp BP Pulse Ox
98.1 F 107 18 117/82 97
02/14/24 15:00 02/14/24 15:00 02/14/24 15:00 02/14/24 15:00 02/14/24 15:00
I&O
02/13/24 02/14/24 02/15/24
06:59 06:59 06:59
Intake Total 1020 / 1020 880 / 880
Output Total 100 / 100
Balance 1020 / 1020 780 / 780
[2024-02-14] MEDS: VITAMIN B-12 1000 MCG PO (17:02)
[2024-02-14] MEDS: KCL 10 MEQ PO (17:02)
[2024-02-14] MEDS: TYLENOL 1000 MG PO (20:17)
--- NOTE | 2024-02-14 21:31 | PTCARENOTE ---
Report given to DIEGO Valadez, pt transferred to room 423 with all belongings
--- NOTE | 2024-02-14 22:12 | PTCARENOTE ---
Pt arrived on to floor via transfer @2133. AAOx3 and in stable condition. Pt was oriented to room and call cantrell; will continue to monitor
[2024-02-15] VITALS (7 sets, daily range): BP systolic 116–126; BP diastolic 56–65; PULSE 103–140
[2024-02-15] MEDS: ZESTRIL 2.5 MG PO (07:56)
[2024-02-15] MEDS: VITAMIN B-12 1000 MCG PO (07:56)
[2024-02-15] MEDS: MIRALAX 17 GRAMS PO (07:56)
[2024-02-15] MEDS: ANUSOL HC 25 MG RECTAL ×2 (07:56→20:07)
[2024-02-15 09:26] LABS: Hematocrit 29.3 % (37.0-47.0); Hemoglobin 9.2 g/dL (12.0-16.0); Mean Corp Hgb Conc. 31.4 g/dL (33.0-37.0); Mean Corpuscular Hgb 28.3 pg (27.0-31.0); Mean Corpuscular Volume 90.2 fL (81.0-99.0); Mean Platelet Volume 8.6 fL (7.4-10.4); Platelet Count 365 10^3/uL (130-400); Red Blood Cell Count 3.25 10^6/uL (4.20-5.40); White Blood Cell Count 8.7 10^3/uL (4.8-10.8)
[2024-02-15 09:35] LABS: Blood Urea Nitrogen 20 mg/dl (7-17); Calcium 9.8 mg/dl (8.4-10.2); Carbon Dioxide 27 mmol/L (22-30); Chloride 99 mmol/L (98-107); Estimated Creatinine Clearance 53 ml/min; Glucose 99 mg/dl (70-99); Potassium 3.5 mmol/L (3.5-5.1); Sodium 137 mmol/L (135-145); eGFR > 60.00
--- NOTE | 2024-02-15 10:06 | CM ---
Addendum entered by Karyn Luna 02/15/24 15:23:
TC to patients son Mateus.
Discussed PT/OT therapy notes and recommendations.
Patient is from assisted living at [facility] and is at a level 6. (1-6).
Skilled rehabs discussed- [facility], [facility], [facility] and [facility] referrals placed.
Spoke with Chiquita at [facility] and will fax todays therapy notes to [phone].
Chiquita will be out to eval patient tomorrow to see if she can return.
Discussed above with patient and sh is in agreement, son updated.
Plan: skilled rehab vs back to [facility] with VN.
Original Note:
TC form [facility], patient is current and they will resume services at discharge.
Referral placed in [facility].
[facility]'s VN
--- NOTE | 2024-02-15 10:15 | W.PN.UPDATE ---
Update Note
Progress Note Update
Lower extremity arterial studies reviewed. Her BHARATI is within normal limits on the left (noncompressible at the posterior tibial artery location). TBI is just mildly reduced. Suspect that she has adequate perfusion for wound healing.
Podiatry for possible debridement
Wound care
Prevalon boots for heel offloading at all times
Can follow-up with me in the office after discharge
Call with questions or concerns
Pete Ornelas III, MD
[facility] Vascular Surgery
[phone] ([id number])
--- NOTE | 2024-02-15 11:56 | W.PN.HOSP.TC ---
Today's Communication/Plan
-
Start PPO Vanco
If better discharge tomorrow
Assessment / Plan
Assessment / Plan
CVS: S1-S2 normal
Chest: CTA B/L
Abdomen: Soft, NT , Bowel sounds present
Extremities: No edema
Had 4 episodes of BM
#Acute lower GI bleed -hemorrhoidal versus other etiology.� Large external hemorrhoid noted by ED.� Hemodynamically stable.� No further bleeding in the hospital as per nursing. Advanced diet
GI consult noted. Holding off on colonoscopy per patient and family wishes.
Reportedly patient had a colonoscopy 5 years ago but was a poor prep and nondiagnostic.� Information obtained by family.
Ideally should get her external hemorrhoid treated, can follow-up with colorectal surgery after discharge.
Loose stools- C Diff antigen positive
With symptoms will start PO Vanco
Also reached out to GI
#Acute blood loss anemia -suspect related to GI bleed as above.� Hemoglobin 9.2 on admission, 9.2 this morning, relatively stable.
#Left heel dry gangrene/pressure wound -due to limited mobility.�
Continue Prevalon boots, offloading. Vascular and podiatry input noted. Surgical shoe .
BHARATI within normal limits TBI reduced
X-ray without any bone changes
#Functional paraplegia -suspect due to severe deconditioning, frailty, aging.� Mainly in the wheelchair.
#Recent fall with left hip fracture -admitted to [facility] in December, required left total hip arthroplasty.� Discharged to rehab on January 11, and recently discharged back to her assisted living facility.
#Osteoporosis
#Hyperlipidemia
#Chronic pain on tramadol
#GERD/Pantoja's esophagus
#IBS-on loperamide as outpatient
#DNR
Discussed with GI
Discussed with Son on the phone and updated.
Anticipated Discharge: Within 24 hours
Subjective/Interval History
-
Date of Service: February 15, 2024
Objective Data
-
Labs:
Laboratory Results
02/15/24
08:06
WBC 8.7
Hgb 9.2 L
Hct 29.3 L
Plt Count 365
Sodium 137
Potassium 3.5
Chloride 99
Carbon Dioxide 27
BUN 20 H
Creatinine 0.6
Glucose 99
Calcium 9.8
Vital Signs:
Vital Signs
Temp Pulse Resp BP Pulse Ox
98.1 F 95 18 124/56 95
02/15/24 07:05 02/15/24 07:05 02/15/24 07:05 02/15/24 07:05 02/15/24 07:05
I&O
02/14/24 02/15/24 02/16/24
06:59 06:59 06:59
Intake Total 880 / 880 960 / 960
Output Total 100 / 100
Balance 780 / 780 960 / 960
[2024-02-15] MEDS: FIRVANQ 125 MG PO ×3 (12:55→23:06)
--- NOTE | 2024-02-15 16:47 | PTCARENOTE ---
AJITH to CAMILO tele per Dr. Steven
[2024-02-15] MEDS: TYLENOL 1000 MG PO (20:05)
--- NOTE | 2024-02-16 03:40 | DOWNTIME ---
There was a [employer] Downtime on 02/16/2024 from 0100 to 02/16/2024 at 0322. Downtime documentation of patient's care, including medication administrations, has been reconciled in the electronic record per guidelines. Refer to the
patient's paper chart under the miscellaneous tab to see printed paper medication records and downtime forms.
[2024-02-16] MEDS: FIRVANQ 125 MG PO ×2 (05:11→13:15)
[2024-02-16 08:11] VITALS: BP 145/72
[2024-02-16 08:26] LABS: Blood Urea Nitrogen 19 mg/dl (7-17); Calcium 9.6 mg/dl (8.4-10.2); Carbon Dioxide 25 mmol/L (22-30); Chloride 102 mmol/L (98-107); Estimated Creatinine Clearance 53 ml/min; Glucose 96 mg/dl (70-99); Potassium 3.8 mmol/L (3.5-5.1); Sodium 138 mmol/L (135-145); eGFR > 60.00
--- NOTE | 2024-02-16 09:55 | CM ---
Addendum entered by Suzi Mireles 02/16/24 14:37:
Patient has been cleared for discharge today and plan is to return to [facility] in [place] by ambulance, son Elias is aware.
Report: no report per Cherelle in admissions

Original Note:
manager compensation reviewed patient's chart and reached out to patient's sonElias with update. Patient was evaluated by [facility] Nurse at [facility] who came out to see patient today. manager compensation provided [facility] with H&P, updated physician notes
and PT/OT, per [facility], [facility] would prefer that patient return to skilled if possible. Message left with patient's sonElias to review skilled options.
Plan; Await final decision from [facility].
[2024-02-16] MEDS: ZESTRIL 2.5 MG PO (10:11)
[2024-02-16] MEDS: VITAMIN B-12 1000 MCG PO (10:11)
[2024-02-16] MEDS: ANUSOL HC 25 MG RECTAL (10:12)
[2024-02-16] MEDS: MIRALAX PO (10:14)
--- NOTE | 2024-02-16 14:21 | W.PN.HOSP.TC ---
Addendum entered and electronically signed by Avery Steven MD 02/16/24 14:25:
Spoke to GI.
OK to stop Rectal HC
Original Note:
Today's Communication/Plan
-
Discharge
Assessment / Plan
Assessment / Plan
CVS: S1-S2 normal
Chest: CTA B/L
Abdomen: Soft, NT , Bowel sounds present
Extremities: No edema
#Acute lower GI bleed -hemorrhoidal versus other etiology.� Large external hemorrhoid noted by ED.� Hemodynamically stable.� No further bleeding in the hospital as per nursing. Advanced diet
GI consult noted. Holding off on colonoscopy per patient and family wishes.
Reportedly patient had a colonoscopy 5 years ago but was a poor prep and nondiagnostic.� Information obtained by family.
Ideally should get her external hemorrhoid treated, can follow-up with colorectal surgery after discharge.
Loose stools- C Diff antigen positive
PO Vanco started and diarrhea stopped.
No Diarrhea
#Acute blood loss anemia -suspect related to GI bleed as above.�
#Left heel dry gangrene/pressure wound -due to limited mobility.�
Continue Prevalon boots, offloading. Vascular and podiatry input noted. Surgical shoe .
BHARATI within normal limits TBI reduced
X-ray without any bone changes
#Functional paraplegia -suspect due to severe deconditioning, frailty, aging.� Mainly in the wheelchair.
#Recent fall with left hip fracture -admitted to [facility] in December, required left total hip arthroplasty.� Discharged to rehab on January 11, and recently discharged back to her assisted living facility.
#Osteoporosis
#Hyperlipidemia
#Chronic pain on tramadol
#GERD/Pantoja's esophagus
#IBS-on loperamide as outpatient
Will hold
#DNR
Discussed with Son on the phone and update 02/15/24.
D/W RN
D/W Case management.
Discharge time 32 min
Anticipated Discharge: Today
Subjective/Interval History
-
Date of Service: February 16, 2024
Objective Data
-
Labs:
Laboratory Results
02/16/24
06:54
Sodium 138
Potassium 3.8
Chloride 102
Carbon Dioxide 25
BUN 19 H
Creatinine 0.4 L
Glucose 96
Calcium 9.6
Vital Signs:
Vital Signs
Temp Pulse Resp BP Pulse Ox
98.1 F 89 18 145/72 96
02/16/24 08:11 02/16/24 08:11 02/16/24 08:11 02/16/24 08:11 02/16/24 08:11
I&O
02/15/24 02/16/24 02/17/24
06:59 06:59 06:59
Intake Total 960 / 960 700 / 700
Balance 960 / 960 700 / 700
--- NOTE | 2024-02-16 14:30 | W.DS.TRANS ---
DC Summary - [employer]
-
Discharge Instructions:
Discharge Diagnosis/Procedures Lower GI bleed, hemorrhoids, anemia, left heel
dry gangrene, C diff antigen positive Toxin
Negative , Diarrhea
Diet Regular
Activity With assistance,As tolerated
Driving Restrictions No driving
Bathing Restrictions None
Blood Work CBC next week with your primary care doctor
Other Services VN
Instructions:
Stand-Alone Forms:
Changes to Home Medications: Yes
Discharge Medications:
DC Medications w/original date entered in [employer]
acetaminophen 500 mg tablet (Tylenol Extra Strength) 1,000 mg PO Q6HPRN PRN mild pain 05/04/22
cholecalciferol (vitamin D3) 25 mcg (1,000 unit) tablet 25 mcg PO DAILY Supplement 02/11/24
lisinopril 2.5 mg tablet 2.5 mg PO DAILY Blood Pressure 02/11/24
polyethylene glycol 3350 17 gram oral powder packet (HealthyLax) 17 g PO DAILY PRN constipation #0 ea 02/13/24
tramadol 50 mg tablet 50 mg PO BIDPRN PRN hip pain #4 tabs 02/15/24
vancomycin 125 mg capsule 125 mg PO QID cdiff #36 caps 02/15/24
loperamide 2 mg capsule 2 mg PO BIDPRN PRN diarrhea #0 caps 02/16/24
Home Medication Changes
new
tramadol 50 mg tablet 50 mg PO BIDPRN PRN hip pain #4 tabs 02/15/24
vancomycin 125 mg capsule 125 mg PO QID cdiff #36 caps 02/15/24
Pending Results: No
--- NOTE | 2024-02-16 14:37 | W.DS.TRANS ---
Addendum entered and electronically signed by Avery Steven MD 02/17/24 08:23:
Dictation - [id number]
Original Note:
DC Summary - [employer]
-
Discharge Instructions:
Discharge Diagnosis/Procedures Lower GI bleed, hemorrhoids, anemia, left heel
dry gangrene, C diff antigen positive Toxin
Negative , Diarrhea
Diet Regular
Activity With assistance,As tolerated
Driving Restrictions No driving
Bathing Restrictions None
Blood Work CBC next week with your primary care doctor
Other Services VN
Instructions:
Stand-Alone Forms:
Changes to Home Medications: Yes
Discharge Medications:
DC Medications w/original date entered in [facility]
acetaminophen 500 mg tablet (Tylenol Extra Strength) 1,000 mg PO Q6HPRN PRN mild pain 05/04/22
cholecalciferol (vitamin D3) 25 mcg (1,000 unit) tablet 25 mcg PO DAILY Supplement 02/11/24
lisinopril 2.5 mg tablet 2.5 mg PO DAILY Blood Pressure 02/11/24
polyethylene glycol 3350 17 gram oral powder packet (HealthyLax) 17 g PO DAILY PRN constipation #0 ea 02/13/24
tramadol 50 mg tablet 50 mg PO BIDPRN PRN hip pain #4 tabs 02/15/24
vancomycin 125 mg capsule 125 mg PO QID cdiff #36 caps 02/15/24
loperamide 2 mg capsule 2 mg PO BIDPRN PRN diarrhea #0 caps 02/16/24
Home Medication Changes
new
vancomycin 125 mg capsule 125 mg PO QID cdiff #36 caps 02/15/24
loperamide 2 mg capsule 2 mg PO BIDPRN PRN diarrhea #0 caps 02/16/24
Pending Results: Yes
Additional Pending Results:
Stool Culture
[2024-02-16 16:00] VITALS: BP 117/62
[2024-02-16] MEDS: TYLENOL 1000 MG PO (17:04)
== END 2024-02-16 17:45 | disposition home health service (06) | DRG 378 ==
LOC: 4 WEST ACU 15:49
PROVIDERS: Registered Nurse; ADMITTING PHYSICIAN Hospitalist; ATTENDING PHYSICIAN Hospitalist; CONSULT PHYSICIAN Internal Medicine Gastroenterology; CONSULT PHYSICIAN Surgery Vascular Surgery; EMERGENCY PHYSICIAN Emergency Medicine; FAMILY PHYSICIAN Nurse Practitioner Adult Health
DX: K92.2 Gastrointestinal hemorrhage, unspecified (principal); D62 Acute posthemorrhagic anemia; I96 Gangrene, not elsewhere classified; F44.4 Conversion disorder with motor symptom or deficit; M81.0 Age-related osteoporosis without current pathological fracture; K21.9 Gastro-esophageal reflux disease without esophagitis; K58.9 Irritable bowel syndrome, unspecified; Z66 Do not resuscitate; E78.00 Pure hypercholesterolemia, unspecified; K63.5 Polyp of colon
CPT/HCPCS: 73650; 80048; 80053; 85014; 85018; 85025; 85027; 85610; 85730; 86850; 86900; 86901; 87045; 87046; 87324; 87427; 87449; 93922; 93925; 97163; 97167; 97530; 97535; 99284

== ENCOUNTER → 2024-04-27 12:36 | Outpatient (REF) | payer MEDICARE, BC, SELFPAY | LOC: WOUND 12:36 | PROVIDERS: ATTENDING PHYSICIAN Surgery | DX: L89.623 Pressure ulcer of left heel, stage 3 (principal); K22.70 Barrett's esophagus without dysplasia; K58.0 Irritable bowel syndrome with diarrhea; R26.2 Difficulty in walking, not elsewhere classified; R42 Dizziness and giddiness | CPT/HCPCS: 11042; 99204 ==

== ENCOUNTER → 2024-05-05 11:38 | Outpatient (REF) | payer MEDICARE, BC, SELFPAY | LOC: WOUND 11:38 | PROVIDERS: ATTENDING PHYSICIAN Surgery | DX: L89.623 Pressure ulcer of left heel, stage 3 (principal); K22.70 Barrett's esophagus without dysplasia; K58.0 Irritable bowel syndrome with diarrhea; R26.2 Difficulty in walking, not elsewhere classified; R42 Dizziness and giddiness | CPT/HCPCS: 11042 ==

== ENCOUNTER → 2024-05-19 14:27 | Outpatient (REF) | payer MEDICARE, BC, SELFPAY | LOC: WOUND 14:27 | PROVIDERS: ATTENDING PHYSICIAN Surgery | DX: L89.623 Pressure ulcer of left heel, stage 3 (principal) | CPT/HCPCS: 11042 ==

== ENCOUNTER 2024-05-31 10:32 | Inpatient (IN) | payer MEDICARE, BC, SELFPAY ==
[2024-05-31] VITALS (24 sets, daily range): BP systolic 77–126; BP diastolic 60–78; BMI 23.3
[2024-05-31 06:49] LABS: % Basophils 0.4 % (0-2); % Eosinophils 0.3 % (0-6); % Immature Granulocytes 0.4 % (0-0.5); % Lymphocytes 13.6 % (20.5-51.1); % Monocytes 4.8 % (1.7-9.3); % Neutrophils 80.5 % (42.2-75.2); Absolute Monocytes 0.4 10^3/uL (0.1-0.6); Hematocrit 34.5 % (37.0-47.0); Mean Corp Hgb Conc. 31.9 g/dL (33.0-37.0); Mean Corpuscular Hgb 27.2 pg (27.0-31.0); Mean Corpuscular Volume 85.2 fL (81.0-99.0); Mean Platelet Volume 8.1 fL (7.4-10.4); Nucleated Red Blood Cells % 0 %; Platelet Count 286 10^3/uL (130-400); Red Blood Cell Count 4.05 10^6/uL (4.20-5.40); Red Cell Dist. Width 15.7 % (11.5-14.5); White Blood Cell Count 7.5 10^3/uL (4.8-10.8)
[2024-05-31 07:00] LABS: ALT (SGPT) 14 U/L (0-35); AST (SGOT) 37 U/L (14-36); Albumin 4.3 g/dl (3.5-5.0); Alkaline Phosphatase 71 U/L (38-126); Blood Urea Nitrogen 20 mg/dl (7-17); Calcium 10.3 mg/dl (8.4-10.2); Carbon Dioxide 24 mmol/L (22-30); Chloride 106 mmol/L (98-107); Estimated Creatinine Clearance 53 ml/min; Glucose 116 mg/dl (70-99); Sodium 139 mmol/L (135-145); Total Bilirubin 0.5 mg/dl (0.2-1.3); Total Protein 6.8 g/dl (6.3-8.2); eGFR > 60.00
[2024-05-31] MEDS: ZOFRAN 4 MG IV (07:19)
[2024-05-31] MEDS: MORPHINE SULFATE 4 MG IV (07:20)
--- NOTE | 2024-05-31 07:22 | ED.GENMED ---
History of Present Illness
General
Chief Complaint: Chest Pain
Source: patient and ambulance crew
Time Seen by Provider: 05/31/24 06:23
History of Present Illness
History of Present Illness:
83-year-old female who presents with substernal chest pain. Patient reports that the pain radiates to her left shoulder and arm. Pain started at 3 AM. She also reports she developed diarrhea which is not uncommon with her colitis. The patient
does feel little bit nauseous. Also feels mildly short of breath. No history of coronary disease.
Past History
Past History
ED Past Medical History: GERD, Hypercholesterolemia and Other (Low back pain, osteoporosis, colitis, GERD, irritable bowel syndrome)
ED Past Surgical History: Gynecological
Patient has exhibited threatening behavior?: No
Social History
Tobacco: Non-smoker
Alcohol: None
Drug: None
Personal:
Living: assisted living
Employment: Retired
Family History
Family History: Other
Phy Exam
Physical Exam
Physical Exam:
CONSTITUTIONAL Patient alert and oriented to person, place and time. Mild pain distress. Vital signs reviewed.
HEAD atraumatic, normocephalic.
EYES eyelids normal to inspection, Pupils equally round and reactive to light, Extraocular muscles intact, Conjunctiva normal, Sclera normal.
NECK normal range of motion, Trachea midline, no jugular venous distention.
RESPIRATORY CHEST No respiratory distress noted, Chest expansion equal, Bilateral breath sounds clear.
CARDIOVASCULAR regular rate and rhythm, Heart sounds normal.
ABDOMEN No distention.
BACK kyphotic
UPPER EXTREMITY range of motion normal, Motor strength normal, no cyanosis, no edema.
LOWER EXTREMITY range of motion normal, Motor strength normal, no cyanosis, no edema.
NEURO Speech normal, No focal motor deficits, [place] coma scale 15, Memory normal, Cranial Nerves intact to screening exam.
SKIN skin warm, dry, and normal in color.
PSYCHIATRIC patient oriented to person place and time, Normal affect.
Scores
Heart Score for Chest Pain Patients
STEMI patient?: No
History: Highly Suspicious
ECG: Normal
Age: >/= 65 years
Risk Factors: 1 or 2 Risk Factors
Troponin: >/= 3 x Normal Limit
Heart Score for Chest Pain Patients: 7
Heart Score Risk: 72.7 % MACE over next 6 weeks
Course
Orders/Labs/Results
Orders:
Orders
05/31/24 06:24
EKG [Electrocardiogram (*1)] Urgent
Reason for Study: Chest Pain
EKG- Treatment ONCE
05/31/24 06:40
Cardiovascular Evaluation Urgent
Complete Blood Count/With Diff Urgent
Comprehensive Metabolic Panel Urgent
Troponin I Urgent
05/31/24 07:05
Morphine Sulfate 4 mg IV NOW STA
Ondansetron Injectable [Zofran] 4 mg IV NOW STA
05/31/24 07:18
Electrocardiogram (*1) Urgent
Reason for Study: Chest Pain
EKG- Treatment ONCE
Heparin 3,300 units IV NOW STA
Nursing to Place Non Medication Order As Directed
Physician Order: PTT 6 hours after initial start of Heparin infusion
Above order entered?: Yes
05/31/24 07:30
PTT Urgent
Comment: Obtain baseline before beginning heparin infusion if not already collected
Heparin 92137 Units/250 ml 25,000 units in 250 ml IV PER PROTOCOL
Weight to be used for heparin protocol in kilograms (kg):: 54.2
Protocol:: Cardiac Tx/Acute Coronary
PTT Goal Range to be used:: PTT 73 to 111 seconds
Order type:: Initial
INITIAL Infusion Dose (UNITS/KG/hr) & then follow protocol:: 12 units/kg/hr
Infusion Dose in UNITS/hr & then follow protocol (UNITS/hr):: 650
INFUSION RATE in mL/hr & then follow protocol (mL/hr):: 6.5
PTT less than or equal to 64 seconds:: Increase rate by 200 units/hr (+ 2 mL/hr)
PTT 64.1 to 72.9 seconds:: Increase rate by 100 units/hr (+ 1 mL/hr)
PTT 73 to 111 seconds:: Target Range. No change in rate.
PTT 111.1 to 130.9 seconds:: Decrease rate by 100 units/hr (- 1 mL/hr)
PTT 131 to 199.9 seconds:: HOLD for 1 hr. Then decrease rate by 200 units/hr (- 2 mL/hr)
PTT greater than or equal to 200 seconds:: HOLD for 2 hrs & Notify Provider. Then decrease by 200 units/hr (-
2 mL/hr)
Lab follow-up:: Each change, PTT q6h until 2 consecutive are therapeutic. Then PTT
daily.
CR Chest Portable - 1 View Urgent
Reason For Exam: CP
05/31/24 07:37
Nitroglycerin Sublingual [Nitrostat (Sublingual)] 0.4 mg SL NOW STA
05/31/24 07:38
0.9% Sodium Chloride 500 ml [Nss] 500 ml IV BOLUS
05/31/24 08:03
Nitroglycerin 100 mg/250 ml [Nitroglycerin Premix] 100 mg in 250 ml IV NOW
Initial dose in mcg/min, then titrate:: 5
Titrate to keep:: SBP < 160 mmHg
Titrate by mcg/min:: 5 mcg/min, may increase by 10 mcg/min if dose > 20 mcg/min
Frequency of titrations (minutes):: every 3-5 minutes
Maximum dose in mcg/min:: 200
Begin to taper infusion when:: Remained at goal for 2hrs
Taper by mcg/min:: 5 mcg/min
Frequency of taper (minutes) if patient maintains goal:: 30
Taper to off?: Yes
If infusion off & no longer maintaining goal:: Contact Provider
05/31/24 08:17
Echo 2D MMode Color/Doppler Urgent
Reason for Study: CP, elevated troponin
Aspirin Chewable [Low Strength Aspirin] 324 mg PO NOW STA
05/31/24 09:55
Add On- LAB Routine
Tests Added?: lipid panel
05/31/24 Lunch
NPO
Allow oral meds: Yes
Allow clear liquids: No
05/31/24 10:12
Admit/Transfer Patient As Directed
Co-Sign Provider:
Level of Care: Inpatient admission
Assign to:: IVU
Physician / Group: Armin, Liza
Diagnosis: CP, NSTEMI
Reason for Hospitalization: NSTEMI, cardiac cath
Expected length of stay greater than two midnights?: Yes
ELOS- Estimated Length of Stay in days: 3
I certify the patient meets the requirements for IP care: Yes
05/31/24 10:14
Code Status As Directed
Resuscitation Status: Do not resuscitate
Reached after discussion with pt or family/Healthcare POA: Yes
DNR Bracelet Application ONCE
05/31/24 11:47
Electrocardiogram (*1) Q6H
Reason for Study: Chest Pain
Comment: at admission and Q3H for total of 3, to be done with each troponin
Acetaminophen [Tylenol] 1,000 mg PO Q6HPRN PRN
Loperamide [Imodium] 2 mg PO BIDPRN PRN
Polyethylene Glycol Powder [Miralax] 17 grams PO DAILYPRN PRN
Tramadol HCl [Ultram] 25 mg PO BIDPRN PRN
Tramadol HCl [Ultram] 50 mg PO BIDPRN PRN
05/31/24 11:47
VTE Contraindication Routine
VTE Mechanical Device Contraindication: Medical Contraindication
Pharmocologic Contraindication: Medical Contraindication
Comment: on IV heparin
Activity As Directed
Activity Level: As Tolerated
ECG as needed As Directed
ECG as needed for:: Chest Pain
Additional Instructions:: with chest pain x 2 episodes.
INT (Intravenous Needle Therapy) As Directed
Comment: maintain peripheral IV access
Intake/ Output As Directed
Frequency: q12h
Vital Signs As Directed
Frequency: q4h
Weight As Directed
Frequency: Once
Pulse Ox/spot Check [RESP] Routine
Quantity: 1
Special Instructions: on admission and then every shift if on oxygen
05/31/24 12:53
Glycohemoglobin (HgbA1c) Routine
Troponin I Q3H
Comment: at admit & Q3H for 3 total including ED draws, obtain ECG with each level
05/31/24 13:30
PTT Urgent
Comment: Obtain baseline before beginning heparin infusion if not already collected
05/31/24 14:47
Troponin I Q3H
Comment: at admit & Q3H for 3 total including ED draws, obtain ECG with each level
05/31/24 17:47
Electrocardiogram (*1) Q6H
Reason for Study: Chest Pain
Comment: at admission and Q3H for total of 3, to be done with each troponin
Troponin I Q3H
Comment: at admit & Q3H for 3 total including ED draws, obtain ECG with each level
05/31/24 23:47
Electrocardiogram (*1) Q6H
Reason for Study: Chest Pain
Comment: at admission and Q3H for total of 3, to be done with each troponin
06/01/24 06:00
Basic Metabolic Panel IN AM
Complete Blood Count/No Diff IN AM
06/01/24 08:00
Aspirin Chewable [Low Strength Aspirin] 81 mg PO DAILY
Abnormal Lab Results
05/31/24
06:40
RBC 4.05 L 10^6/uL
(4.20-5.40)
Hgb 11.0 L g/dL
(12.0-16.0)
Hct 34.5 L %
(37.0-47.0)
MCHC 31.9 L g/dL
(33.0-37.0)
RDW 15.7 H %
(11.5-14.5)
Absolute Lymphs (auto) 1.0 L 10^3/uL
(1.2-3.4)
Neutrophils % 80.5 H %
(42.2-75.2)
Lymphocytes % 13.6 L %
(20.5-51.1)
BUN 20 H mg/dl
(7-17)
Creatinine 0.5 L mg/dL
(0.6-1.0)
Glucose 116 H mg/dl
(70-99)
Calcium 10.3 H mg/dl
(8.4-10.2)
AST 37 H U/L
(14-36)
Troponin I 2.270 H* ng/ml
Triglycerides 183 H mg/dl
(10-149)
Total Cholesterol 254 H mg/dl
(50-199)
VLDL Cholesterol, Calc 36 H mg/dl
(0-30)
05/31/24 06:40
05/31/24 06:40
Vital Signs
Initial and Last Documented VS:
Initial Vital Signs
Temp Pulse Resp BP Pulse Ox
99.0 F 80 19 117/71 95
05/31/24 06:26 05/31/24 06:26 05/31/24 06:26 05/31/24 06:26 05/31/24 06:26
Last Documented Vital Signs
Temp Pulse Resp BP Pulse Ox
98.5 F 83 20 117/76 94
05/31/24 12:30 05/31/24 13:00 05/31/24 12:30 05/31/24 13:00 05/31/24 12:30
MDM/Problems Addressed
MDM/Problems Addressed:
Unstable angina, NSTEMI
Chronic conditions affecting care:
History of GI bleeding, history of colitis
*Radiology
Radiology exam reviewed: preliminary read by ED provider
*Pulse Oximetry
Patient hypoxic: no
*EKG
Interpreted by ED Provider?: Yes
Rate: normal
Rhythm: sinus
[place]: normal axis
QRS Pattern: normal QRS
Ischemia: no ischemia
*Rn Perinatal Interpretation
Rate: normal
Interpretation: normal
Rhythm: sinus
*Critical Care Note
Total Time (30-74mins, 75-104mins- exclusive of procedures): 60 minnutes
Data Reviewed
Source: patient
Prescriptions/Medications Considered But Not Given:
Consider aspirin patient states she does not want to take it because she bleeds when she takes aspirin
Patient Management
Discussion with other providers: Clinical Asst (Case discussed with Dr. Lewis who will evaluate at bedside)
Escalation/DeEscalation of care consider admission/obs:
Concerning type of chest pain an 83-year-old female. EKG does not appear ischemic although there is some slight ST morphology changes when compared to the old one. Troponin noted 2.7 in the face of patient with concerning type pain. Risks and
benefits of heparin noted but at this time given her pain and troponin, I think it is necessary to treat with heparin. Hold aspirin for now will discuss with cardiology again. Slightly better after morphine. Trial nitroglycerin
ED Attending Note
-
Portions of this chart may have been created with voice recognition software.� Occasional wrong word or��sound alike� substitutions may have occurred due to the inherent limitations of voice recognition software.
Discharge Plan
Departure
Patient Disposition: Admit
Date of Disposition: 05/31/24
Time of Disposition: 07:32
Admit to: IVU
Presentation/result/management discussed w/ accepting MD/DO: Hospitalist
Discharge Problem:
Non-ST elevation FL (NSTEMI)
Interventions
Interventions:
*Risk Screen - Suicide Last Done: 05/31/24 06:26
*General Assessment Last Done: 05/31/24 06:26
*Neglect/Abuse Screening Last Done: 05/31/24 06:26
ED- Fall Risk Assessment Last Done: 05/31/24 06:32
*ED COVID-19 Vaccine History Last Done: 05/31/24 06:26
*Nursing Disposition Last Done: 05/31/24 11:52
ED- Cardiac Assessment Last Done: 05/31/24 07:53
Discharge Date and Time
Discharge Date/Time: 05/31/24 11:53
[2024-05-31] MEDS: HEPARIN 3300 UNITS IV (07:27)
[2024-05-31] MEDS: HEPARIN 25000 UNITS/250 ML IV (07:35)
[2024-05-31] MEDS: NITROSTAT (SUBLINGUAL) 0.4 MG SL (07:44)
[2024-05-31] MEDS: NSS 500 IV (07:44)
[2024-05-31 08:07] LABS: APTT 27.8 Sec (23.4-35.0)
--- NOTE | 2024-05-31 08:14 | CON.CAR ---
Addendum entered and electronically signed by Liza Funez MD 05/31/24 12:50:
I saw and examined the patient.
The Station Cashier's note was reviewed and I agree with the note.
Comment: Briefly, Ms Lorenzo is a 83-year-old female with past medical history of hypertension, hyperlipidemia, IBS, GERD/Pantoja's esophagus, chronic pain on tramadol, colitis with prior history of rectal bleeding and chronic anemia who presents
with substernal chest pressure that started around 3 AM and woke her up from sleeping found to have an NSTEMI with troponin I elevated on presentation at 2.27. ECG with no acute ischemic changes. He was initiated on treatment for NSTEMI however
initially refused aspirin given her history of GI bleeding and eventually agreed.She was also initiated on heparin and nitroglycerin drips
Vital signs and lab work reviewed. Troponin I of 2.27. Hemoglobin baseline on presentation is 11. Normal renal function. On exam patient is an elderly female, comfortable and in no acute distress, frail and cachectic, alert, awake and oriented x
3, son is at bedside, normal S1 and S2, no m/r/g, fine bibasilar Rales but otherwise clear to auscultation, warm extremities without significant edema
Reccs:
1. Continue medical treatment currently for NSTEMI with aspirin, high intensity statin, IV heparin drip, IV nitroglycerin drip and beta-bernice as tolerated.
2. Echocardiogram was completed and reviewed by me showing hypo to akinesis of mid to apical anterior, anteroseptal and inferoseptal davila with LVEF of 40 to 45%, which potentially could be a Takotsubo or stress-induced cardiomyopathy pattern
however this is a diagnosis of exclusion.
3. Lengthy discussion was had with patient and her son at bedside given prior history of GI bleed and hesitancy for antiplatelet agents along with her DNR status and after discussing the risk and benefits, patient and her son would like to move
forward with invasive therapies and are agreeable to dual antiplatelet agents if needed with close monitoring of her blood counts and have reversed her DNR status and wish to be full code for now. We discussed the risk and benefits in detail and
after informed consent plan is to move forward with a coronary angiogram to rule out obstructive CAD.
4. Further recommendations based on findings of the heart catheterization.
Liza Funez MD, [facility]
Original Note:
Consultation
Consultation Request
Date/Time Consultation Performed: 05/31/24
Requesting Provider: Dr. Terry
Performing Provider: Ana Rosa Pablo PA-C for Dr. Funez
Reason for Consultation: CP
Medical History
-
Chief Complaint: CP
History of Present Illness:
Patient is an 83-year-old female with past medical history of colitis with history of rectal bleeding felt to be secondary to flare 01/2024. Patient and family opted to hold off on colonoscopy at that time. She is followed by Dr. Pizano as OP.
She reports she has intermittent rectal bleeding mostly in the setting of a colitis flare. She was previously told she should not take aspirin due to prior bleeding. She reports today around 3 AM she woke up with central chest discomfort with
radiation down her left arm. She reports some mild nausea in addition. She lives in an independent dwelling at [facility]. She denies history of cardiac issues and does not believe she has ever been seen by cardiology. She is on
medication for blood pressure. On arrival troponin elevated at 2.27. EKG without acute ischemic changes. She was given SL nitro x1 by EMS, and 1 here in ER in addition to dose of IV morphine. She reports L arm pain still 6-7/10 and chest
discomfort 5-6/10. Cardiology consulted for evaluation. She states she is a DNR code status.
PMH:
HTN
Colitis
Chronic anemia secondary to above
History of rectal bleeding 01/2024 felt to be diverticular or hemorrhoidal
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
GERD/Pantoja's esophagus
IBS
History of colon polyps
Chronic pain, on tramadol
Past Medical History
Past Medical History: Other (in HPI)
Social History
Tobacco: Non-Smoker
Alcohol: None
Living: Alone
Employment: Retired
Allergies / Home Medications
Allergy/AdvReac Type Severity Reaction Status Date / Time
aspirin Allergy Rectal Verified 05/31/24 06:32
Bleeding
�Medication �Instructions �Recorded �Confirmed �Type
acetaminophen 500 mg tablet 1,000 mg PO Q6HPRN PRN mild pain 05/04/22 05/31/24 History
(Tylenol Extra Strength)
cholecalciferol (vitamin D3) 25 25 mcg PO BID Supplement 02/11/24 05/31/24 History
mcg (1,000 unit) tablet
loperamide 2 mg capsule 2 mg PO BIDPRN PRN diarrhea #0 caps 02/16/24 05/31/24 Rx
lisinopril 2.5 mg tablet 2.5 mg PO DAILY 05/31/24 05/31/24 History
polyethylene glycol 3350 17 gram 17 g PO DAILYPRN PRN constipation 05/31/24 05/31/24 History
oral powder packet (HealthyLax)
tramadol 50 mg tablet 25 mg PO BIDPRN PRN moderate pains 05/31/24 05/31/24 History
tramadol 50 mg tablet 50 mg PO BIDPRN PRN severe pains 05/31/24 05/31/24 History
Review of Systems
-
History Source: Patient
All other systems: Negative unless noted
Physical Exam
Vital Signs
Temp Pulse Resp BP Pulse Ox
99.0 F 76 22 123/67 95
05/31/24 06:26 05/31/24 07:45 05/31/24 07:45 05/31/24 07:30 05/31/24 07:45
Lab Results
05/31/24 06:40
05/31/24 06:40
Troponin I 2.270 ng/ml H* 05/31/24 06:40
Physical Exam
General: No Apparent Distress and Comfortable
HEENT: Normocephalic, Anicteric and Moist Mucous Membranes
Respiratory: Clear and Non Labored Respirations
Cardiac: S1/S2 and Regular Rhythm
GI: Soft, Non Tender, Non Distended and Normal Bowel Sounds
Musculoskeletal: No Clubbing, No Cyanosis and No Edema
Skin: Warm and Dry
Neuro: AO x 3
Impression / Plan
-
Primary Head Golf Professional: none
Assessment:
Presentation with CP
Elevated troponin, concern for ACS
HTN
Colitis
Chronic anemia secondary to above
History of rectal bleeding 01/2024 felt to be diverticular or hemorrhoidal
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
GERD/Pantoja's esophagus
IBS
History of colon polyps
Chronic pain, on tramadol
Hiatal hernia by CXR
ECHO 05/31/24: pending
Plan:
-Patient presents with chest pain. Troponin elevated at 2.27.
-Difficult case as she has history of lower GI/rectal bleeding felt to be secondary to her colitis. She was also noted to have an external hemorrhoid during 01/2024 admission
-She was previously told not to take aspirin due to prior bleeding, so initially refused it in ER. She was started on IV heparin. We have discussed necessity of aspirin with patient and she is now agreeable to take.
-We discussed ideally plan for cardiac catheterization to assess her coronary anatomy, however that this would require dual antiplatelet therapy for at least 1 year if she were to require stenting, which could significantly increase her risk of GI
bleeding.
-She remains with chest/left upper extremity discomfort. Will place on low-dose IV nitro gtt and follow
-trend trops
-check urgent echo
-NPO for possible cath today
-may need GI opinion if plan to proceed with cath to assess for pretreatment and to assess bleeding risk in setting of known colitis
-CXR with hiatal hernia however no acute processes
-check CVE
-of note, she did confirm to me she is presently a DNR code status
-called and discussed with patient's son, Gerry via telephone for 7:00 minutes and updated. he will talk to patient and his brother and will get back to me with consensus.
-d/w ER physician
Data Reviewed
-
EKG: Tracing Personally Visualized and interpreted
Radiology: Report Reviewed by me
Labs: Labs Reviewed by me
Old Records: Reviewed
[2024-05-31] MEDS: NITROGLYCERIN PREMIX 250 IV (08:22)
[2024-05-31] MEDS: LOW STRENGTH ASPIRIN 324 MG PO (08:35)
[2024-05-31 10:40] LABS: HDL Cholesterol 83 mg/dl; LDL Cholesterol, Calculated 135 mg/dl; Total Cholesterol 254 mg/dl (50-199); Triglyceride 183 mg/dl (10-149); Very Low Density Lipoprotein 36 mg/dl (0-30)
--- NOTE | 2024-05-31 11:50 | PTCARENOTE ---
Received patient from ED. Patient currently has Heparin gtt at 650 units/hour and Nitroglycerin gtt at 25 mcg/min. Patient rates CP 5/10 'However it's better than it was.' It radiates to left shoulder and arm. Patient awaiting cardiac cath.
--- NOTE | 2024-05-31 11:50 | WOUNDNOTE ---
Lani GIRALDO (Photo taken by DIEGO Sarkar)
--- NOTE | 2024-05-31 12:50 | ITS.CL.CATH ---
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
Cardiac Catheterization
Procedure Report:
LEFT HEART CATHETERIZATION AND CORONARY INTERVENTION
Date of Procedure: May 31, 2024
Referring: [facility]
PROCEDURES:
1. Left catheterization, coronary angiogram.
2. Ultrasound-guided access
3. Successful percutaneous coronary artery intervention of 100% mid LAD occlusion (PARISH 0 flow, lesion type C) with a 2.5 x 18 mm Medtronic [place] frontier drug-eluting stent, postdilated using a 2.5 x 15 mm Euphora NC balloon at 16 mildred with an
excellent angiographic result and lutheran of PARISH-3 flow into the apical LAD.
INDICATION: Ms Lorenzo is a 83-year-old female with past medical history of hypertension, hyperlipidemia, IBS, GERD/Pantoja's esophagus, chronic pain on tramadol, colitis with prior history of rectal bleeding and chronic anemia who presents with
substernal chest pressure that started around 3 AM and woke her up from sleeping found to have an NSTEMI with troponin I elevated on presentation at 2.27. ECG with no acute ischemic changes. Se was initiated on treatment for NSTEMI however
initially refused aspirin given her history of GI bleeding and eventually agreed.She was also initiated on heparin and nitroglycerin drips
ACCESS:
1. Right radial artery, 6 Surinamese sheath, under ultrasound guidance. Given significant right subclavian tortuosity which made it difficult to torque catheters, this access was aborted in favor of right common femoral arterial access.
2. Right common femoral artery, 6 Surinamese sheath, under ultrasound guidance using a micropuncture kit.
HEMODYNAMICS : (mmHg)
AO (s/d) : 124/60
LV (s/d) : 121/13
LVEDP : 28
CORONARY FINDINGS
DOMINANCE: Right
LEFT MAIN: The left main artery is a large-caliber vessel which gives rise to left anterior descending artery, a small to medium caliber ramus intermedius branch and the left circumflex artery. There is minimal luminal irregularities.
LEFT ANTERIOR DESCENDING: The left anterior descending artery is a medium to large caliber, moderate to severely tortuous vessel which gives rise to 1 major branching diagonal branch. There is 100% mid LAD occlusion distal to the diagonal branch
with 2 areas of significant tortuosity at the ostium and in the mid LAD at the level of the takeoff of the diagonal branch. This is the culprit of presenting acute coronary syndrome. This occlusion was intervened on with details below.
RAMUS INTERMEDIUS: There is a small to medium caliber ramus intermedius branch with 2 serial 70 and 80% stenoses, respectively. It is a moderate to severely tortuous vessel.
CIRCUMFLEX: The left circumflex artery is a moderate to severely tortuous vessel which gives rise to 1 major branching obtuse marginal branch, 2 small to medium caliber left posterolateral branches. There is mild diffuse atherosclerotic plaque.
RIGHT CORONARY ARTERY: The right coronary artery has a high anterior takeoff and was engaged using a 6 Surinamese 3 DRC diagnostic catheter. It is a medium caliber vessel, dominant which gives rise to the right posterior descending artery and the right
posterolateral system. There is mild diffuse atherosclerotic plaque
CORONARY INTERVENTION: 100% mid LAD occlusion is the culprit for presenting non-ST elevation [place]. Decision was made to move forward with percutaneous intervention. Given significant right subclavian tortuosity providing poor catheter support and
ability to torque decision was made to abort right radial access and obtain right common femoral arterial access for better support especially considering significant tortuosity in the LAD which would make it difficult to deliver balloons and stents
in the mid LAD. Additional heparin was given to maintain a therapeutic ACT throughout the case after right common femoral arterial access was obtained. The left coronary artery was selectively engaged using a 6 Surinamese EBU 3.75 guide catheter. We
initially attempted to wire the lesion using a 190 cm 0.014' power turn flex coronary wire however given significant tortuosity despite multiple passes we were not able to advance the wire beyond the bend in the mid LAD. At this point we brought in
a 300 cm 0.014' whisper coronary wire through a Alee coronary microcatheter and after significant difficulty we were able to successfully navigate into the mid to distal vessel. Given lack of flow here with significant wire bias in the mid LAD,
we confirmed intraluminal presence by taking a shot through the microcatheter. At this point we switched out the whisper wire for a 300 cm 0.014 BMW coronary wire which was parked into the distal LAD. A 6 Surinamese guide liner was brought in upfront
given significant tortuosity to allow for additional support to deliver balloons and stents. With GuideLiner support, the mid LAD lesion was predilated using a 2.0 x 12 mm semicompliant balloon at 14 mildred with good expansion. Despite GuideLiner
support, with a significant difficulty delivering a 2.5 x 18 mm Medtronic [place] frontier drug-eluting stent but eventually succeeded. The stent was deployed in the mid LAD and successfully postdilated using a 2.5 x 15 mm Euphora NC balloon at 16 mildred
with an excellent angiographic result. PARISH-3 flow was restored at the end of the case. Patient was loaded with 20 mg of Brilinta. No acute complications.
SEDATION: 134 minutes of procedural sedation was utilized. An independent medical collections representative was present to assist with and help manage the patient's level of consciousness and physiologic status.
RADIATION SUMMARY: Fluoro Time (min): 37.1, Dose (mGy): 767.6, DAP (Gy.cm2) : 54.8
Closure Device:
1. Vascular band over the right radial artery with 10 cc of air.
2. 6 Surinamese Angio-Seal over the right common femoral arterial access with successful hemostasis.
CONCLUSIONS
1. Moderate to severely tortuous coronary arteries.
2. Successful percutaneous coronary artery intervention of 100% mid LAD occlusion (PARISH 0 flow, lesion type C) with a 2.5 x 18 mm Medtronic [place] frontier drug-eluting stent, postdilated using a 2.5 x 15 mm Euphora NC balloon at 16 mildred with an
excellent angiographic result and lutheran of PARISH-3 flow into the apical LAD.
3. Significantly elevated LVEDP.
RECOMMENDATIONS
1. Uninterrupted dual antiplatelet therapy with daily baby aspirin Brilinta 90 mg twice daily in the setting of acute coronary syndrome with close monitoring of her blood counts along with a high intensity statin and beta-bernice as tolerated.
2. Goal-directed medical therapy for ischemic cardiomyopathy.
3. Aggressive management of cardiovascular risk factors.
4. Wean radial band per protocol. Bedrest per protocol for right common femoral arterial access.
5. Referral for outpatient cardiac rehab.
Liza Funez MD, FACC, [facility]
--- NOTE | 2024-05-31 13:00 | PTCARENOTE ---
EKG and Troponin obtained. 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
[2024-05-31 13:34] LABS: ACT-LR - POC 113 Seconds (116-155)
--- NOTE | 2024-05-31 13:48 | WOUNDNOTE ---
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 RN Laureen leal texted a L heel wound photo taken late this am and mentioned some odor. Discussed and showed [facility] nurse Edging Supervisor Jazmine who was in agreement with suggested wound care.
CATRINA Marc approved local wound care and heel pressure relief measures. Care plan to be updated. Will follow as needed. Patient to follow up at [facility] whom she follows.
[2024-05-31 14:07] LABS: ACT-LR - POC 174 Seconds (116-155)
[2024-05-31 14:10] LABS: Glycohemoglobin (HgbA1c) 5.7 % (4.0-5.6)
[2024-05-31 14:17] LABS: ACT-LR - POC 229 Seconds (116-155)
[2024-05-31 14:39] LABS: ACT-LR - POC 281 Seconds (116-155)
[2024-05-31 14:57] LABS: ACT-LR - POC 274 Seconds (116-155)
[2024-05-31 15:18] LABS: ACT-LR - POC 358 Seconds (116-155)
--- NOTE | 2024-05-31 16:30 | CM ---
Reviewed chart. Met with Mrs. Lorenzo and son to review discharge plans. Prior to admission she resides at [facility]. She has been there for a year and half. Prior to admission she uses a wheelchair for mobility. She needs
assistance with transfers and adls. Received consult for kirk check of Brilinta 90 mg po bid. Telephone call to [facility], ([phone]) to check on co-pay. Brilinta is a non preferred brand, but she has coverage but she would have to pay 50% of
the cost of the medication at a retail pharmacy. If she does mail order for a 90 day supply her co-pay would be $125.00. Placed the one month free coupon in her red discharge folder. Will need to see her current functional level to see if she
will have any skilled care needs. Medical work-up in progress. The discharge plan is to return to [facility] when medically stable.
[2024-05-31 16:58] LABS: Iron 49 ug/dl (37-170)
[2024-05-31 17:07] LABS: Percent Saturation 13 % (20-50); Total Iron Binding Capacity 352 ug/dl (265-497)
[2024-05-31] MEDS: ULTRAM 25 MG PO (17:12)
[2024-05-31] MEDS: LIPITOR 40 MG PO (17:12)
[2024-05-31 17:36] LABS: Ferritin 18.1 ng/ml (11.1-264.0)
[2024-06-01] VITALS (9 sets, daily range): BP systolic 90–149; BP diastolic 64–86; PULSE 87–92; O2SAT 97
[2024-06-01 03:27] LABS: Hematocrit 29.3 % (37.0-47.0); Hemoglobin 9.6 g/dL (12.0-16.0); Mean Corp Hgb Conc. 32.8 g/dL (33.0-37.0); Mean Corpuscular Hgb 27.4 pg (27.0-31.0); Mean Corpuscular Volume 83.5 fL (81.0-99.0); Mean Platelet Volume 8.5 fL (7.4-10.4); Platelet Count 221 10^3/uL (130-400); Red Blood Cell Count 3.51 10^6/uL (4.20-5.40); Red Cell Dist. Width 15.6 % (11.5-14.5); White Blood Cell Count 7.1 10^3/uL (4.8-10.8)
--- NOTE | 2024-06-01 03:32 | PTCARENOTE ---
Complaints of nausea, vomited 100 cc of light green emesis, VSS
[2024-06-01 03:49] LABS: Blood Urea Nitrogen 12 mg/dl (7-17); Calcium 9.8 mg/dl (8.4-10.2); Carbon Dioxide 23 mmol/L (22-30); Chloride 104 mmol/L (98-107); Estimated Creatinine Clearance 53 ml/min; Glucose 105 mg/dl (70-99); HDL Cholesterol 64 mg/dl; LDL Cholesterol, Calculated 89 mg/dl; Potassium 3.9 mmol/L (3.5-5.1); Sodium 133 mmol/L (135-145); Total Cholesterol 201 mg/dl (50-199); Triglyceride 243 mg/dl (10-149); Very Low Density Lipoprotein 48 mg/dl (0-30); eGFR > 60.00
[2024-06-01] MEDS: ZOFRAN 4 MG IV (03:49)
[2024-06-01] MEDS: LOW STRENGTH ASPIRIN 81 MG PO (09:03)
[2024-06-01] MEDS: TOPROL XL 25 MG PO (09:03)
[2024-06-01] MEDS: PROTONIX 40 MG PO (09:03)
[2024-06-01] MEDS: BRILINTA 90 MG PO ×2 (09:03→22:04)
[2024-06-01] MEDS: ZESTRIL 2.5 MG PO (09:03)
--- NOTE | 2024-06-01 10:11 | PTCARENOTE ---
Pt freely moving around in bed. Pt boosting herself up in bed. Pt refused to get oob for breakfast. Encouraged ambulation.
--- NOTE | 2024-06-01 10:38 | W.PN.CARDCBS ---
Addendum entered and electronically signed by Liza Funez MD 06/01/24 13:49:
I saw and examined the patient.
The Access Manager's note was reviewed and I agree with the note.
Comment:
Overall patient is doing well this morning. She has not been out of bed into a chair just yet. Denies any recurrent chest discomfort.
.
Vital signs and lab work reviewed. Anemia noted. On exam patient is an elderly female, frail, no acute distress, normal S1 and S2, 2 out of 6 systolic ejection murmur, lungs are clear clear to auscultation bilaterally other than very minimal fine
bibasilar Rales, abdomen is soft nontender, nondistended with active bowel sounds, warm extremities. Right radial access site is ecchymotic without evidence of hematoma or bruit. Right common femoral access site without evidence of hematoma or
bruit.
.
Recommendations:
1. In the setting of acute coronary syndrome status post LAD PCI for 100% acute thrombotic mid LAD occlusion with a 2.5 x 18 mm Medtronic [place] drug-eluting stent, postdilated with a continue uninterrupted dual antiplatelet therapy with daily baby
aspirin and Brilinta 90 mg twice daily.. Case management is helping, stratify Brilinta. High intensity statin and beta-bernice as tolerated.
2. In the setting of new ischemic cardiomyopathy, LVEF of 40 to 45% continue to optimize goal-directed medical therapy. We will ask case management to look into cost for SGLT2 1 inhibitor.
3. In setting of elevated LVEDP, we will give 1 dose of 20 mg of IV Lasix.
4. PT OT evaluation and continued supportive care. Work on out of bed into a chair.
Liza Funez MD, [facility], [facility]
Original Note:
Today's Communication / Plan
-
s/p LAD PCI
assess cost of farxiga
continue asa, brilinta
consider for IV lasix
PT/OT evals
Impression / Plan
-
Primary Executive Communications Manager: none
Assessment:
Presentation with CP
Elevated troponin, concern for ACS
HTN
Colitis
Chronic anemia secondary to above
History of rectal bleeding 01/2024 felt to be diverticular or hemorrhoidal
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
GERD/Pantoja's esophagus
IBS
History of colon polyps
Chronic pain, on tramadol
Hiatal hernia by CXR
ECHO 05/31/24: EF 40-45%, hypo to akinesis of mid to apical anterior, anteroseptal, inferoseptal, and apical davila, sigmoid septum present, MAC, mild MR, moderate AR, moderate TR, PAP 45 mmHg
Plan:
-Patient presents with chest pain.
-trop peaked at 39.
-s/p cath 05/31 with mid LAD lesion s/p PCI
-overnight patient had N/V requiring dose of zofran with improvement. tolerated breakfast this AM. will follow
-continue asa, brilinta. CM assessing cost to patient.
-echo with results as above, reviewed with patient 06/01. with new CM, continue toprol, lisinopril. will have CM assess cost to patient of [facility].
-follow hgb closely in setting of history of colitis/rectal bleeding. hgb 9.6 on 06/01.
-groin site soft, stable
-LVEDP by cath was 28. consider for dose of diuretic today. Cr stable at 0.5.
-LDL 89. continue high intensity lipid lowering
-PT/OT evals. she states since a fall with hip pain earlier this year, she has been mostly ambulatory in wheelchair
-cardiac rehab
-d/w nursing. d/w CM
Progress Note - Executive Communications Manager
Subjective
Date of Service: June 01, 2024
Denies chest pain, shortness of breath. Had an episode of vomiting overnight, now resolved.
Objective
Labs:
06/01/24 03:16
06/01/24 03:16
Labs
Hgb 9.6 g/dL (12.0-16.0) L 06/01/24 03:16
Hct 29.3 % (37.0-47.0) L 06/01/24 03:16
Plt Count 221 10^3/uL (130-400) D 06/01/24 03:16
APTT Cancelled 05/31/24 13:30
Sodium 133 mmol/L (135-145) L 06/01/24 03:16
Potassium 3.9 mmol/L (3.5-5.1) 06/01/24 03:16
BUN 12 mg/dl (7-17) 06/01/24 03:16
Creatinine 0.5 mg/dL (0.6-1.0) L 06/01/24 03:16
Glucose 105 mg/dl (70-99) H 06/01/24 03:16
Troponins
05/31/24 05/31/24 05/31/24
06:40 12:53 14:47
Troponin I 2.270 H* 9.200 H* D Cancelled
05/31/24 05/31/24 06/01/24
17:47 17:57 00:38
Troponin I Cancelled 39.300 H* D 23.500 H* D
06/01/24
03:16
Troponin I 22.100 H*
Vital Signs and I&O:
Vital Signs
Temp Pulse Resp BP Pulse Ox
98.2 F 95 20 131/64 94
06/01/24 07:59 06/01/24 09:45 06/01/24 07:59 06/01/24 09:03 06/01/24 07:59
Vital Signs
Temp Pulse Resp BP Pulse Ox
98.2 F 95 20 131/64 94
06/01/24 07:59 06/01/24 09:45 06/01/24 07:59 06/01/24 09:03 06/01/24 07:59
Intake & Output
05/30/24 05/31/24 06/01/24 06/02/24
07:59 07:59 07:59 07:59
Output Total 1400 / 1400
Balance -1400 / -1400
Physical Exam
Physical Exam
GEN: No distress, awake, alert, oriented x3. frail appearing
HEENT: supple, anicteric, mmm, eomi
LUNGS: CTA B/L, no wheezes/rales
CV: Reg, S1/S2, 1/6 murmur
ABD: soft, BS+, NT/ND
EXT: No cyanosis, clubbing, edema
NEURO: Gross non-focal
SKIN: Warm, pink, dry. No rash. R groin site c/d/i, soft
[2024-06-01] MEDS: LASIX 20 MG IV (11:30)
[2024-06-01] MEDS: SANTYL OINTMENT 1 APPLIC TOPICAL (11:51)
[2024-06-01] MEDS: DAKIN'S SOLUTION 0.125% 1/4 STRENGTH 473 ML TOPICAL (11:52)
--- NOTE | 2024-06-01 14:41 | CM ---
Addendum entered by Tanya Chamberlain 06/01/24 15:09:
Received telephone call from another son Steve Lorenzo who states he does not want his mother to go to SNF/Rehab. but would like her to go diretly back to her assisted living. He states he has a very hard time when she went to rehab last time
getting her assisted living to accept her back. Telephone call to [facility] again and left message for them regarding tentative discharge back to them tomorrow.
Original Note:
Reviewed chart. Asked to check co-pay for Farxiga 10 mg po daily. Telephoe cll to [facility] [place] benefit,([phone]. her co-pay for Farxiga would be $90.00 for a 90 day mail order with [facility]. Telephone call to
[facility] [phone] to check on how her medications get filled. Left message. Spoke with son, Gerry Lorenzo to review discharge plans. He was wondering if she will qualify for SNF/Rehab. prior to returning to [facility]. Physical and
Occupational therapy evaluations pending. He states she was at [facility] in the past for SNF/Rehab. Medical work-up in progress. The discharge plan is to return to [facility] versus SNF/Rehab. if indicated and bed available.
--- NOTE | 2024-06-01 15:27 | WOUNDNOTE ---
[facility] RN note: Patient admitted with CP, [place]. s/p cardiac cath yesterday. Patient lives in assisted living. Patient is current with [facility].
See H&P for complete history.
PMH: HTN, IBS, Pantoja's esophagus, chronic pain, colitis, rectal bleed, anemia, L hip replacement, chronic pain, L heel stage 4 pressure injury.
Wound Location and type/assessment: Patient admitted with: L heel stage 4 pressure injury to muscle, pink with yellow fibrin slough, no odor. 02/14/24 L heel x ray negative for osteomyelitis. 02/14/24 Arterial Doppler R toe pressure .67; L BHARATI 1.05,
L toe pressure .60. +L pedal pulse. Patient wears L knee high Tubigrip.
Appetite: good.
Pressure redistribution devices in place: [employer] Accumax. Patient moves self. She stood from chair for sacral skin assessment. She has [employer] heel relief boots.
Plan: L heel dressing maintained. L heel dressing was just changed by DIEGO Hanley. Wound appears slightly improved from yesterday's picture with less yellow slough and no odor. Confirmed L knee high Tubigrip with CATRINA Marc. Discussed with
DIEGO Stephens.
Updated care plan and will follow as needed. Patient is followed by [facility] and she will follow up at the wound care center.
[2024-06-01] MEDS: LIPITOR 40 MG PO (17:45)
--- NOTE | 2024-06-02 00:57 | PTCARENOTE ---
Patient resting comfortable, denies pain. SR on telemetry. 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 Call cantrell in reach
[2024-06-02 05:01] VITALS: BP 107/62
[2024-06-02 05:30] LABS: Hematocrit 29.5 % (37.0-47.0); Hemoglobin 9.7 g/dL (12.0-16.0); Mean Corp Hgb Conc. 32.9 g/dL (33.0-37.0); Mean Corpuscular Hgb 26.8 pg (27.0-31.0); Mean Corpuscular Volume 81.5 fL (81.0-99.0); Mean Platelet Volume 8.4 fL (7.4-10.4); Platelet Count 242 10^3/uL (130-400); Red Blood Cell Count 3.62 10^6/uL (4.20-5.40); Red Cell Dist. Width 15.7 % (11.5-14.5); White Blood Cell Count 6.6 10^3/uL (4.8-10.8)
[2024-06-02 05:55] LABS: Blood Urea Nitrogen 22 mg/dl (7-17); Calcium 9.8 mg/dl (8.4-10.2); Carbon Dioxide 26 mmol/L (22-30); Chloride 102 mmol/L (98-107); Estimated Creatinine Clearance 53 ml/min; Glucose 100 mg/dl (70-99); Potassium 3.8 mmol/L (3.5-5.1); Sodium 136 mmol/L (135-145); eGFR > 60.00
[2024-06-02 08:02] VITALS: BP 100/65
[2024-06-02] MEDS: LOW STRENGTH ASPIRIN 81 MG PO (08:14)
[2024-06-02] MEDS: TOPROL XL 25 MG PO (08:14)
[2024-06-02] MEDS: ZESTRIL 2.5 MG PO (08:14)
[2024-06-02] MEDS: PROTONIX 40 MG PO (08:14)
[2024-06-02] MEDS: BRILINTA 90 MG PO (08:15)
--- NOTE | 2024-06-02 08:54 | W.PN.CARDCBS ---
Addendum entered and electronically signed by Ana Rosa Pablo PA-C 06/02/24 13:46:
[id number]
Addendum entered and electronically signed by Liza Funez MD 06/02/24 12:07:
I saw and examined the patient.
The Electrical Installer's note was reviewed and I agree with the note.
Comment: Overall patient is doing well this morning. Denies any recurrent chest discomfort and her shoulder discomfort has now resolved.
.
Vital signs and lab work reviewed. Anemia noted but stable. On exam patient is an elderly female, frail, no acute distress, normal S1 and S2, 2 out of 6 systolic ejection murmur, lungs are clear clear to auscultation bilaterally other than very
minimal fine bibasilar Rales, abdomen is soft nontender, nondistended with active bowel sounds, warm extremities. Right radial access site is ecchymotic without evidence of hematoma or bruit. Right common femoral access site without evidence of
hematoma or bruit.
.
Recommendations:
1. In the setting of acute coronary syndrome status post LAD PCI for 100% acute thrombotic mid LAD occlusion with a 2.5 x 18 mm Medtronic [place] drug-eluting stent, postdilated with a continue uninterrupted dual antiplatelet therapy with daily baby
aspirin and Brilinta 90 mg twice daily, high intensity statin and beta-bernice as tolerated.
2. In the setting of new ischemic cardiomyopathy, LVEF of 40 to 45% continue to optimize goal-directed medical therapy. Will initiate Farxiga with close monitoring of any potential side effects especially urinary symptoms given prior history of
UTIs.
3. Continue with out of bed into a chair and ambulation as tolerated.
4. Stable for discharge later today from a cardiac standpoint. Referral for outpatient cardiac rehab. Outpatient cardiology follow-up will be set up.
Liza Funez MD, [facility], [facility]
Addendum entered and electronically signed by Ana Rosa Pablo PA-C 06/02/24 11:56:
called and updated patient's son Gerry via telephone for 3:33.
Total DC time 37 minutes
Original Note:
Today's Communication / Plan
-
continue post ID care
hgb stable
discuss cost of meds to patient - [facility]
likely home with home care later today
cardiac rehab
OP cardiac follow up
Impression / Plan
-
Primary Marketing Technology Specialist: none
Assessment:
Presentation with CP
Elevated troponin, concern for ACS
HTN
Colitis
Chronic anemia secondary to above
History of rectal bleeding 01/2024 felt to be diverticular or hemorrhoidal
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
GERD/Pantoja's esophagus
IBS
History of colon polyps
Chronic pain, on tramadol
Hiatal hernia by CXR
ECHO 05/31/24: EF 40-45%, hypo to akinesis of mid to apical anterior, anteroseptal, inferoseptal, and apical davila, sigmoid septum present, MAC, mild MR, moderate AR, moderate TR, PAP 45 mmHg
Plan:
-Patient presented with chest pain. trop peaked at 39.
-s/p cath with mid LAD lesion s/p PCI 05/31/24
-on asa, brilinta
-echo with results as above, EF 40-45%. with new CM, continue toprol, lisinopril.
-CM assessing cost to patient of [facility].
-follow hgb closely in setting of history of colitis/rectal bleeding. hgb stable at 9.7 on 06/02
-groin site soft, stable
-LVEDP by cath was 28. s/p IV lasix 20mg 06/01. hold off on further lasix at this time
-LDL 89. continue high intensity lipid lowering
-cardiac rehab
-likely for DC to home with home care later today
-OP cardiac follow up arranged
-d/w nursing.
Progress Note - Marketing Technology Specialist
Subjective
Date of Service: June 02, 2024
denies CP, groin pain, SOB.
Objective
Labs:
06/02/24 05:11
06/02/24 05:11
Labs
Hgb 9.7 g/dL (12.0-16.0) L 06/02/24 05:11
Hct 29.5 % (37.0-47.0) L 06/02/24 05:11
Plt Count 242 10^3/uL (130-400) 06/02/24 05:11
APTT Cancelled 05/31/24 13:30
Sodium 136 mmol/L (135-145) 06/02/24 05:11
Potassium 3.8 mmol/L (3.5-5.1) 06/02/24 05:11
BUN 22 mg/dl (7-17) H 06/02/24 05:11
Creatinine 0.6 mg/dL (0.6-1.0) 06/02/24 05:11
Glucose 100 mg/dl (70-99) H 06/02/24 05:11
Troponins
05/31/24 05/31/24 05/31/24
06:40 12:53 14:47
Troponin I 2.270 H* 9.200 H* D Cancelled
05/31/24 05/31/24 06/01/24
17:47 17:57 00:38
Troponin I Cancelled 39.300 H* D 23.500 H* D
06/01/24
03:16
Troponin I 22.100 H*
Vital Signs and I&O:
Vital Signs
Temp Pulse Resp BP Pulse Ox
98.1 F 81 18 100/65 96
06/02/24 04:00 06/02/24 08:14 06/02/24 04:00 06/02/24 08:14 06/02/24 04:00
Vital Signs
Temp Pulse Resp BP Pulse Ox
98.1 F 81 18 100/65 96
06/02/24 04:00 06/02/24 08:14 06/02/24 04:00 06/02/24 08:14 06/02/24 04:00
Intake & Output
05/31/24 06/01/24 06/02/24 06/03/24
07:59 07:59 07:59 07:59
Intake Total 360 / 360
Output Total 1400 / 1400 400 / 400
Balance -1400 / -1400 -40 / -40
Physical Exam
Physical Exam
GEN: No distress, awake, alert, oriented x3. frail appearing
HEENT: supple, anicteric, mmm, eomi
LUNGS: CTA B/L, no wheezes/rales
CV: Reg, S1/S2, 1/6 murmur
ABD: soft, BS+, NT/ND
EXT: No cyanosis, clubbing, edema
NEURO: Gross non-focal
SKIN: Warm, pink, dry. No rash. R groin site c/d/i, soft
--- NOTE | 2024-06-02 10:15 | PTCARENOTE ---
Pt clarified that her last fall was in december, when she broke her hip. Fall status changed. Will monitor.
[2024-06-02 11:12] VITALS: BP 104/62
--- NOTE | 2024-06-02 11:57 | W.PN.UPDATE ---
Update Note
Progress Note Update
called and completed prior authorization for farxiga 10mg daily. good through 06/02/25. will start farxiga today. discussed side effects of possible UTI/yeast infections with patient. she states she does wear a pull up however is good about changing
it. informed to keep area clean and dry. informed son of this side effect as well. will reassess in outpatient setting. she knows to call if any urinary symptoms.
--- NOTE | 2024-06-02 12:13 | W.DS.TRANS ---
DC Summary - Policy Issue Clerk
-
Discharge Instructions:
Discharge Diagnosis/Procedures NSTEMI, s/p angioplasty and stent to Left
Anterior Descending artery
Diet Low Cholesterol,Low Sodium
Activity Other activity
Additional Activity no heavy lifting greater than 10 pounds for 1
week!
Driving Restrictions No driving for 24 hours
Bathing Restrictions OK to Shower
Blood Work BMP in 1 week
Other Services Cardiac Rehab,PT,OT
Wound Care as below
Instructions:
Stand-Alone Forms: DC Instructions- Cath/EP Lab
Changes to Home Medications: Yes
Discharge Medications:
DC Medications w/original date entered in [employer]
acetaminophen 500 mg tablet (Tylenol Extra Strength) 1,000 mg PO Q6HPRN PRN mild pain 05/04/22
cholecalciferol (vitamin D3) 25 mcg (1,000 unit) tablet 25 mcg PO BID Supplement 02/11/24
loperamide 2 mg capsule 2 mg PO BIDPRN PRN diarrhea #0 caps 02/16/24
lisinopril 2.5 mg tablet 2.5 mg PO DAILY Blood Pressure 05/31/24
polyethylene glycol 3350 17 gram oral powder packet (HealthyLax) 17 g PO DAILYPRN PRN constipation 05/31/24
tramadol 50 mg tablet 25 mg PO BIDPRN PRN moderate pains 05/31/24
tramadol 50 mg tablet 50 mg PO BIDPRN PRN severe pains 05/31/24
aspirin 81 mg chewable tablet 81 mg PO DAILY #30 tabs 06/02/24
atorvastatin 40 mg tablet 40 mg PO QPM #30 tabs 06/02/24
dapagliflozin propanediol 10 mg tablet 10 mg PO DAILY #30 tabs 06/02/24
metoprolol succinate 25 mg tablet,extended release 24 hr 25 mg PO DAILY #30 tabs 06/02/24
pantoprazole 40 mg tablet,delayed release 40 mg PO DAILY #30 tabs 06/02/24
ticagrelor 90 mg tablet (Brilinta) 90 mg PO BID #60 tabs 06/02/24
Home Medication Changes
aspirin, lipitor, farxiga, toprol, protonix, brilinta are new
Pending Results: No
--- NOTE | 2024-06-02 12:17 | CM ---
Addendum entered by Tanya Chamberlain 06/02/24 15:14:
[facility] states they can not use the $5.00 coupon for Brilinta because they think it is a subsized Federal Program. 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
Original Note:
Reviewed chart. Telephone call to Shanna <[phone]) to confirm ability to accept back today. Reviewed physical therapy evaluation withthem ans they can accept back. [facility] will need scripts and discharge instructions faxed
to them. The fax number is ([phone]) and the nurse to call report is ([phone]) ask for nursing. Telephone call to [facility] to check on co-pay for Brilinta and Farxiga. Brilinta co-pay will be $215.00 a
month. but she has a commercial plan so she can use the $5.00 coupon which will bring her co-pay to $20.00 a month. Farxiga needs a prior auth. . Prior auth phone number is ([phone]). Prior auth is completed and her co-pay for Farxiga would be
$33.00 a month, but she has a commercial insurance and can get Farxiga for free. Faxed the Brilinta and Farxiga coupons to [facility]. Medical work-up in progress. The discharge plan is to return to [facility] with
resumption of [facility]. when medically stable.
[2024-06-02] MEDS: FARXIGA 10 MG PO (13:25)
[2024-06-02] MEDS: DAKIN'S SOLUTION 0.125% 1/4 STRENGTH 1 ML TOPICAL (13:26)
[2024-06-02] MEDS: SANTYL OINTMENT 1 APPLIC TOPICAL (13:27)
--- NOTE | 2024-06-02 14:22 | PTCARENOTE ---
Report given to Syeda at [facility]. Pt's son to excelsior picker pt's clothes and bring to the hospital. Pt to be discharged.
[2024-06-02 15:30] VITALS: BP 118/74
--- NOTE | 2024-06-02 17:11 | PTCARENOTE ---
Discussed pt's discharge instructions w/ pt and pt's son. Encouraged questions. Pt's son was given a copy of the discharge instructions, stent card and coupons for magdaleno and arlen. Pt d/c to [facility] by pt's son.
--- NOTE | 2024-06-02 18:08 | PTCARENOTE ---
Received a call from Emeli at [facility] reguarding Ms. Lorenzo. Emeli requested a discharge summery since her facility has a contract / [facility]. Ms. Lorenzo is know to [facility]. Discharge
packet and continuim of care faxed to [phone]. Emeli can be called at [phone].
== END 2024-06-02 17:34 | disposition home or self-care (01) | DRG 322 ==
LOC: IVU 10:32
PROVIDERS: Nurse Practitioner; Physician Assistant; ADMITTING PHYSICIAN Internal Medicine Interventional Cardiology; EMERGENCY PHYSICIAN Emergency Medicine
PROC: B2111ZZ Fluoroscopy of Multiple Coronary Arteries using Low Osmolar Contrast (ICD-10-PCS; 2024-05-31)
PROC: 027034Z Dilation of Coronary Artery, One Artery with Drug-eluting Intraluminal Device, Percutaneous Approach (ICD-10-PCS; 2024-05-31)
PROC: 4A023N7 Measurement of Cardiac Sampling and Pressure, Left Heart, Percutaneous Approach (ICD-10-PCS; 2024-05-31)
DX: I21.4 Non-ST elevation (NSTEMI) myocardial infarction (principal); D63.8 Anemia in other chronic diseases classified elsewhere; I10 Essential (primary) hypertension; I77.1 Stricture of artery; I25.10 Atherosclerotic heart disease of native coronary artery without angina pectoris; I25.5 Ischemic cardiomyopathy; K58.9 Irritable bowel syndrome, unspecified; K21.9 Gastro-esophageal reflux disease without esophagitis; K22.70 Barrett's esophagus without dysplasia; Z66 Do not resuscitate; K44.9 Diaphragmatic hernia without obstruction or gangrene; G89.29 Other chronic pain; Z96.642 Presence of left artificial hip joint; Z79.899 Other long term (current) drug therapy; Z87.19 Personal history of other diseases of the digestive system; Z88.6 Allergy status to analgesic agent
CPT/HCPCS: 71045; 80048; 80053; 80061; 82728; 83036; 83540; 83550; 84484; 85025; 85027; 85347; 85730; 87070; 93005; 93306; 93458; 96374; 96375; 97163; 97166; 99152; 99153; 99291; C1725; C1760; C1769; C1874; C1894; C9600; Q9967

== ENCOUNTER → 2024-06-29 12:40 | Outpatient (REF) | payer MEDICARE, BC, SELFPAY | LOC: WOUND 12:40 | PROVIDERS: ATTENDING PHYSICIAN Surgery | DX: L89.623 Pressure ulcer of left heel, stage 3 (principal); K22.70 Barrett's esophagus without dysplasia; K58.0 Irritable bowel syndrome with diarrhea; R26.2 Difficulty in walking, not elsewhere classified; R42 Dizziness and giddiness; I25.10 Atherosclerotic heart disease of native coronary artery without angina pectoris | CPT/HCPCS: 11042 ==

== ENCOUNTER → 2024-07-14 14:28 | Outpatient (REF) | payer BC, SELFPAY | LOC: WOUND 14:28 | PROVIDERS: ATTENDING PHYSICIAN Surgery | DX: L89.623 Pressure ulcer of left heel, stage 3 (principal); K22.70 Barrett's esophagus without dysplasia; K58.0 Irritable bowel syndrome with diarrhea; R26.2 Difficulty in walking, not elsewhere classified; R42 Dizziness and giddiness; I25.10 Atherosclerotic heart disease of native coronary artery without angina pectoris | CPT/HCPCS: 11042 ==

== ENCOUNTER → 2024-07-28 14:34 | Outpatient (REF) | payer BC, SELFPAY | LOC: WOUND 14:34 | PROVIDERS: ATTENDING PHYSICIAN Surgery; FAMILY PHYSICIAN Nurse Practitioner Adult Health | DX: L89.623 Pressure ulcer of left heel, stage 3 (principal); K22.70 Barrett's esophagus without dysplasia; K58.0 Irritable bowel syndrome with diarrhea; R26.2 Difficulty in walking, not elsewhere classified; R42 Dizziness and giddiness; I25.10 Atherosclerotic heart disease of native coronary artery without angina pectoris | CPT/HCPCS: 11042 ==

== ENCOUNTER → 2024-08-11 14:01 | Outpatient (REF) | payer BC, SELFPAY | LOC: WOUND 14:01 | PROVIDERS: ATTENDING PHYSICIAN Surgery | DX: L89.623 Pressure ulcer of left heel, stage 3 (principal); K22.70 Barrett's esophagus without dysplasia; K58.0 Irritable bowel syndrome with diarrhea; R26.2 Difficulty in walking, not elsewhere classified; R42 Dizziness and giddiness; I25.10 Atherosclerotic heart disease of native coronary artery without angina pectoris | CPT/HCPCS: 99212 ==

== ENCOUNTER → 2024-12-22 13:35 | Outpatient (REF) | payer BC, SELFPAY | LOC: RCS 13:35 | PROVIDERS: ATTENDING PHYSICIAN Internal Medicine Interventional Cardiology | DX: I21.4 Non-ST elevation (NSTEMI) myocardial infarction (principal); I25.5 Ischemic cardiomyopathy | CPT/HCPCS: 93306 ==

== ENCOUNTER 2025-01-23 21:30 | Emergency (ER) | payer BC, SELFPAY ==
[2025-01-23 21:33] VITALS: BP 147/77
--- NOTE | 2025-01-23 22:00 | ED.GENMED ---
History of Present Illness
General
Chief Complaint: Abdominal Symptoms
Source: patient
Exam Limitations: none
Time Seen by Provider: 01/23/25 21:48
Nursing documentation reviewed up to this point in time: agreed with
History of Present Illness
History of Present Illness:
84 yo female from [facility] w h/o HLD, HTN, NE, GERD, Colitis, presents for left side pain.
Developed n/v/d a week ago,and tested Flu+
Last emesis and diarrhea 3 days ago
[place] better yesterday and able to hold fluid and small amount foot down.
Today started retching again, no emesis and feels nauseous now ,
She developed left side pain today and when she told the staff, they suggested she come here for the pain in her side.
Past History
Past History
ED Past Medical History: GERD, HTN, Hypercholesterolemia and Other (Low back pain, osteoporosis, colitis, GERD, irritable bowel syndrome)
ED Past Surgical History: Gynecological
Patient has exhibited threatening behavior?: No
Social History
Tobacco: Non-smoker
Alcohol: None
Drug: None
Personal:
Living: assisted living
Employment: Retired
Family History
Family History: Other
Review of Systems
Review of Systems
Allergies reviewed?: Yes
All Other Systems: ROS reviewed and negative except as documented in HPI and ROS
Constitutional: Denies fever
EENT: Denies sore throat
Respiratory: Denies trouble breathing
Cardiac: Denies chest pain
ABD/GI: Reports nausea; Denies abdominal pain
: Reports flank pain (left); Denies dysuria, frequency or difficulty voiding
Musculoskeletal: Reports no symptoms
Skin: Reports no symptoms
Neurological: Reports no symptoms
Phy Exam
Physical Exam
Physical Exam:
GENERAL: No acute distress. A&Ox3.
CONSTITUTIONAL: Afebrile.
EYES: clear, conjunctivae normal
ENMT: moist mucus membranes, Pharynx nl
RESPIRATORY: Regular respirations, nonlabored, lungs clear.
CARDIOVASCULAR: Regular rate and rhythm, no murmurs, no rubs.
GI: Soft, tender right abdomen, normal BS
MUSCULOSKELETAL: Moves with ease. Well perfused.
SKIN: Warm, dry, pink
PSYCH: Normal mood and affect. Well kept, interactive and appropriate
NEUROLOGIC: Awake, alert and oriented. No focal neurological deficits
Course
Orders/Labs/Results
Orders:
Orders
01/23/25 21:56
0.9% Sodium Chloride 500 ml [Nss] 500 ml IV BOLUS
Ondansetron Injectable [Zofran] 4 mg IV NOW STA
01/23/25 22:06
Complete Blood Count/With Diff Urgent
Comprehensive Metabolic Panel Urgent
01/23/25 23:25
Urinalysis Reflex To Culture Urgent
Date Specimen was Collected: 01/23/25
Time Specimen was Collected: 23:23
Urine Microscopic Reflex Cult Urgent
Urine Culture Urgent
MARIANELA Source: U
Specimen Description:
Date Specimen was Collected: 01/23/25
Time Specimen was Collected: 23:23
01/24/25 00:30
CT Abd/pel Without Iv Or Oral Urgent
Reason For Exam: L flank pain
01/24/25 00:59
Ketorolac [Toradol] 15 mg IV NOW STA
01/24/25 01:02
0.9% Sodium Chloride 500 ml [Nss] 500 ml IV BOLUS
01/24/25 01:05
NEPHROLOGY CONSULT Urgent
Consulting Provider: Devi Awad
Was physician already notified: Yes
Reason for consult: Hyponatremia and hyperchloremia, PETER
Abnormal Lab Results
01/23/25 01/23/25
22:06 23:25
Hgb 11.2 L g/dL
(12.0-16.0)
Hct 35.1 L %
(37.0-47.0)
MCV 79.8 L fL
(81.0-99.0)
MCH 25.5 L pg
(27.0-31.0)
MCHC 31.9 L g/dL
(33.0-37.0)
RDW 16.1 H %
(11.5-14.5)
Abs Immat Gran (auto) 0.1 H 10^3/uL
(0-0.05)
Absolute Neuts (auto) 7.0 H 10^3/uL
(1.4-6.5)
Absolute Lymphs (auto) 0.8 L 10^3/uL
(1.2-3.4)
Absolute Monos (auto) 0.7 H 10^3/uL
(0.1-0.6)
Immature Gran % 0.9 H %
(0-0.5)
Neutrophils % 80.8 H %
(42.2-75.2)
Lymphocytes % 9.6 L %
(20.5-51.1)
Creatinine 1.1 H mg/dL
(0.6-1.0)
Glucose 106 H mg/dl
(70-99)
Urine Ketones 1+ A
(Negative)
Ur Occult Blood Reflex 4+ A
(Negative)
Urine RBC >100 A /HPF
(0-2)
Urine Bacteria (Reflex) Moderate A
(Negative)
Urine Glucose 4+ A
(Negative)
Urine Albumin (Reflex) 2+ A
(Neg - Trace)
01/23/25 22:06
01/23/25 22:06
Vital Signs
Initial and Last Documented VS:
Initial Vital Signs
Temp Pulse Resp BP Pulse Ox
98.9 F 87 17 147/77 99
01/23/25 21:33 01/23/25 21:33 01/23/25 21:33 01/23/25 21:33 01/23/25 21:33
Last Documented Vital Signs
Temp Pulse Resp BP Pulse Ox
98.9 F 62 21 146/57 95
01/23/25 21:33 01/24/25 02:00 01/24/25 02:00 01/24/25 02:00 01/24/25 02:00
MDM/Problems Addressed
Differential Diagnosis Includes:
UTI, kidney stone, diverticulitis, colitis
MDM/Problems Addressed:
84 yo female from [facility] w h/o HLD, HTN, NE, GERD, Colitis, presents for left side pain.
Developed n/v/d a week ago,and tested Flu+
Last emesis and diarrhea 3 days ago
[place] better yesterday and able to hold fluid and small amount foot down.
Today started retching again, no emesis and feels nauseous now ,
She developed left side pain today and when she told the staff, they suggested she come here for the pain in her side.
Afebrile, NAD
10:50 p.m.
CBC with no clinically significant abnormality
CMP with no clinically significant abnormality
U/A: 4+ occult blood, >100 RBC no WBCs
01/24/2025 2:30 AM:
Patient is sleeping appears comfortable, when she was awakened she states pain is still there 'a little. She lives in assisted living and they do not have a nurse on staff during the night so we will keep her till the morning and discharge her on
Flomax, pain medication and urology follow-up.
ED Attending Note
-
Portions of this chart may have been created with voice recognition software.� Occasional wrong word or��sound alike� substitutions may have occurred due to the inherent limitations of voice recognition software.
Discharge Plan
Departure
Prescriptions:
No Action
acetaminophen [Tylenol Extra Strength] 500 MG tablet
1,000 mg PO Q6HPRN PRN (Reason: mild pain)
cholecalciferol (vitamin D3) 25 mcg (1,000 unit) Tablet
25 mcg PO BID
loperamide 2 MG capsule
2 mg PO BIDPRN PRN (Reason: diarrhea) Qty: 0 0RF
tramadol 50 mg Tablet
50 mg PO BIDPRN PRN (Reason: severe pains)
lisinopril 2.5 mg Tablet
2.5 mg PO DAILY
polyethylene glycol 3350 [HealthyLax] 17 gram powder in packet
17 g PO DAILYPRN PRN (Reason: constipation)
tramadol 50 mg tablet
25 mg PO BIDPRN PRN (Reason: moderate pains)
Brilinta 90 mg Tablet
90 mg PO BID Qty: 60 11RF
atorvastatin 40 mg Tablet
40 mg PO QPM Qty: 30 11RF
pantoprazole 40 mg Tablet,Delayed Release (Dr/Ec)
40 mg PO DAILY Qty: 30 11RF
aspirin 81 mg Tablet,Chewable
81 mg PO DAILY Qty: 30 11RF
metoprolol succinate 25 mg Tablet Extended Release 24 Hr
25 mg PO DAILY Qty: 30 11RF
dapagliflozin propanediol [Farxiga] 10 mg tablet
10 mg PO DAILY Qty: 30 11RF
Rx Instructions:
BRAND NAME ONLY.
Referrals:
Rogelio Fernandes MD [Family Provider] -
Interventions
Interventions:
*Risk Screen - Suicide Last Done: 01/23/25 21:35
*General Assessment Last Done: 01/23/25 21:35
*Neglect/Abuse Screening Last Done: 01/23/25 21:35
*ED COVID-19 Vaccine History Last Done: 01/23/25 21:35
ZI-Cwdmrt-Bxwabeotsp Assessment Last Done: 01/23/25 23:00
Discharge Date and Time
Print Language: MAURITANIAN
[2025-01-23 22:12] VITALS: BMI 23.7
[2025-01-23] MEDS: ZOFRAN 4 MG IV (22:13)
[2025-01-23] MEDS: NSS 500 IV (22:13)
[2025-01-23 22:17] LABS: % Basophils 0.3 % (0-2); % Eosinophils 0.7 % (0-6); % Immature Granulocytes 0.9 % (0-0.5); % Lymphocytes 9.6 % (20.5-51.1); % Monocytes 7.7 % (1.7-9.3); % Neutrophils 80.8 % (42.2-75.2); Absolute Eosinophils 0.1 10^3/uL (0-0.7); Absolute Immature Granulocytes 0.1 10^3/uL (0-0.05); Absolute Lymphocytes 0.8 10^3/uL (1.2-3.4); Absolute Monocytes 0.7 10^3/uL (0.1-0.6); Hematocrit 35.1 % (37.0-47.0); Hemoglobin 11.2 g/dL (12.0-16.0); Mean Corp Hgb Conc. 31.9 g/dL (33.0-37.0); Mean Corpuscular Hgb 25.5 pg (27.0-31.0); Mean Corpuscular Volume 79.8 fL (81.0-99.0); Mean Platelet Volume 8.2 fL (7.4-10.4); Nucleated Red Blood Cells % 0 %; Platelet Count 281 10^3/uL (130-400); Red Cell Dist. Width 16.1 % (11.5-14.5); White Blood Cell Count 8.7 10^3/uL (4.8-10.8)
[2025-01-23 22:36] LABS: ALT (SGPT) 18 U/L (0-35); AST (SGOT) 16 U/L (14-36); Albumin 3.8 g/dl (3.5-5.0); Alkaline Phosphatase 77 U/L (38-126); Blood Urea Nitrogen 16 mg/dl (7-17); Calcium 10.1 mg/dl (8.4-10.2); Carbon Dioxide 23 mmol/L (22-30); Chloride 104 mmol/L (98-107); Estimated Creatinine Clearance 28 ml/min; Glucose 106 mg/dl (70-99); Potassium 3.5 mmol/L (3.5-5.1); Sodium 136 mmol/L (135-145); Total Bilirubin 1.1 mg/dl (0.2-1.3); Total Protein 6.3 g/dl (6.3-8.2); eGFR 50.17
[2025-01-23 23:00] VITALS: BP 142/79
[2025-01-23 23:34] LABS: Urine Albumin 2+ (Neg - Trace); Urine Bilirubin Negative (Negative); Urine Character Slightly Cloudy (Clear); Urine Color Yellow; Urine Glucose 4+ (Negative); Urine Ketone 1+ (Negative); Urine Leukocyte Negative (Negative); Urine Nitrite Negative (Negative); Urine Occult Blood 4+ (Negative); Urine Specific Gravity 1.015 (<1.030); Urine Urobilinogen Negative (Neg - 1+)
[2025-01-24] VITALS: BP 143/69
[2025-01-24 00:17] LABS: Urine Red Blood Cell >100 /HPF (0-2)
[2025-01-24 00:24] LABS: Urine Yeast SEEN (Negative)
[2025-01-24 00:25] LABS: Urine Amorphous Seen; Urine Bacteria Moderate (Negative)
[2025-01-24 00:26] LABS: Urine Mucus Moderate; Urine Squamous Cell >30 /LPF (Few)
[2025-01-24 00:53] VITALS: BP 134/69
[2025-01-24 01:00] VITALS: BP 137/60
[2025-01-24] MEDS: TORADOL 15 MG IV (01:09)
[2025-01-24] MEDS: NSS 500 IV (01:09)
[2025-01-24 02:00] VITALS: BP 146/57
[2025-01-24] MEDS: FLOMAX 0.4 MG PO (02:51)
[2025-01-24 02:55] VITALS: BP 121/85
[2025-01-24 06:38] VITALS: BP 123/67
== END 2025-01-24 06:30 | disposition home or self-care (01) ==
LOC: EMR 21:30
PROVIDERS: Registered Nurse; EMERGENCY PHYSICIAN Emergency Medicine; FAMILY PHYSICIAN Family Medicine
DX: R11.2 Nausea with vomiting, unspecified (principal); R10.9 Unspecified abdominal pain; I10 Essential (primary) hypertension; E78.00 Pure hypercholesterolemia, unspecified; K21.9 Gastro-esophageal reflux disease without esophagitis; M81.0 Age-related osteoporosis without current pathological fracture; K58.0 Irritable bowel syndrome with diarrhea; K52.9 Noninfective gastroenteritis and colitis, unspecified; K22.70 Barrett's esophagus without dysplasia; F32.A Depression, unspecified; I25.2 Old myocardial infarction; Z85.828 Personal history of other malignant neoplasm of skin; Z79.82 Long term (current) use of aspirin; Z88.6 Allergy status to analgesic agent
CPT/HCPCS: 99285; 96374; 96375; 96361 ×3; 74176; 80053; 81003; 81015; 85025; 87086

== ENCOUNTER 2025-02-19 15:45 | Emergency (ER) | payer BC, SELFPAY ==
[2025-02-19 15:50] VITALS: BP 153/71
[2025-02-19 16:33] LABS: % Basophils 0.2 % (0-2); % Eosinophils 0.1 % (0-6); % Immature Granulocytes 0.5 % (0-0.5); % Lymphocytes 7.2 % (20.5-51.1); % Monocytes 4.6 % (1.7-9.3); % Neutrophils 87.4 % (42.2-75.2); Absolute Immature Granulocytes 0.1 10^3/uL (0-0.05); Absolute Lymphocytes 0.7 10^3/uL (1.2-3.4); Absolute Monocytes 0.4 10^3/uL (0.1-0.6); Absolute Neutrophils 8.3 10^3/uL (1.4-6.5); Hematocrit 38.4 % (37.0-47.0); Hemoglobin 12.1 g/dL (12.0-16.0); Mean Corp Hgb Conc. 31.5 g/dL (33.0-37.0); Mean Corpuscular Hgb 25.7 pg (27.0-31.0); Mean Corpuscular Volume 81.7 fL (81.0-99.0); Mean Platelet Volume 8.9 fL (7.4-10.4); Nucleated Red Blood Cells % 0 %; Platelet Count 273 10^3/uL (130-400); Red Cell Dist. Width 15.9 % (11.5-14.5); White Blood Cell Count 9.5 10^3/uL (4.8-10.8)
[2025-02-19 16:45] LABS: ALT (SGPT) 14 U/L (0-35); AST (SGOT) 17 U/L (14-36); Albumin 4.9 g/dl (3.5-5.0); Alkaline Phosphatase 88 U/L (38-126); Blood Urea Nitrogen 16 mg/dl (7-17); Calcium 10.4 mg/dl (8.4-10.2); Carbon Dioxide 23 mmol/L (22-30); Chloride 106 mmol/L (98-107); Glucose 109 mg/dl (70-99); Potassium 3.9 mmol/L (3.5-5.1); Sodium 140 mmol/L (135-145); Total Bilirubin 1.3 mg/dl (0.2-1.3); Total Protein 7.4 g/dl (6.3-8.2); eGFR > 60.00
[2025-02-19 16:58] LABS: Lipase 31 U/L (23-300)
[2025-02-19 18:39] VITALS: BP 132/77
[2025-02-19 20:30] VITALS: BP 130/64
[2025-02-19] MEDS: DILAUDID 0.25 MG IV (20:33)
[2025-02-19] MEDS: ZOFRAN 4 MG IV (20:34)
[2025-02-19] MEDS: NSS 1000 IV (20:34)
--- NOTE | 2025-02-19 21:17 | ED.GENMED ---
History of Present Illness
General
Chief Complaint: Abdominal Symptoms
Source: patient
Exam Limitations: none
Time Seen by Provider: 02/19/25 18:55
Nursing documentation reviewed up to this point in time: agreed with
History of Present Illness
History of Present Illness:
Patient to ED with complaint of right flank pain. Symptoms started last PM and continue today. Denies fever/chills. Reports n/v. No diarrhea. Has had kidney stones in the past and reports pain is similar. Brought to ED via EMS for eval.
Past History
Past History
ED Past Medical History: GERD, HTN, Hypercholesterolemia and Other (Low back pain, osteoporosis, colitis, GERD, irritable bowel syndrome)
ED Past Surgical History: Gynecological
Patient has exhibited threatening behavior?: No
Social History
Tobacco: Non-smoker
Alcohol: None
Drug: None
Personal:
Living: assisted living
Employment: Retired
Family History
Family History: Other
Review of Systems
Review of Systems
Allergies reviewed?: Yes
All Other Systems: ROS reviewed and negative except as documented in HPI and ROS
Constitutional: Reports no symptoms
EENT: Reports no symptoms
Respiratory: Reports no symptoms
Cardiac: Reports no symptoms
ABD/GI: Reports nausea and vomiting
: Reports flank pain (right flank pain)
Musculoskeletal: Reports no symptoms
Skin: Reports no symptoms
Neurological: Reports no symptoms
Psychiatric: Reports no symptoms
Phy Exam
General Physical Exam
General Presentation: well appearing and no apparent distress
General age: appears stated age
General Skin: warm and dry
General Mental: alert
Cardiovascular Exam
Cardiovascular Exam: regular rate/rhythm and no edema
Gastrointestinal Exam
Gastrointestinal Exam: normal bowel sounds, soft, no organomegaly, no pulsatile mass, non distended and no cva tenderness
Palpation: left upper quadrant: No tenderness, left lower quadrant: No tenderness, right upper quadrant: Mild tenderness and right lower quadrant: Mild tenderness
Musculoskeletal Exam
Musculoskeletal Exam: full ROM and neuro vasc intact
Skin Exam
Skin Exam: normal color and warm/dry
Psychiatric Exam
Psychiatric Exam: normal mood/affect
Course
Orders/Labs/Results
Orders:
Orders
02/19/25 16:19
Complete Blood Count/With Diff Urgent
Comprehensive Metabolic Panel Urgent
Lactic Acid Urgent
Lipase Urgent
02/19/25 19:16
HYDROmorphone [Dilaudid] 0.25 mg IV NOW STA
Ondansetron Injectable [Zofran] 4 mg IV NOW STA
02/19/25 19:17
Add On- LAB Urgent
Tests Added?: lipase
0.9% Sodium Chloride 1000 ml [Nss] 1,000 ml IV BOLUS
02/19/25 19:19
CT Abd/pel Without Iv Or Oral Urgent
Comment:
Reason For Exam: right flank pain
02/19/25 22:55
Urinalysis Reflex To Culture Urgent
Date Specimen was Collected: 02/19/25
Time Specimen was Collected: 21:59
Urine Microscopic Reflex Cult Urgent
Abnormal Lab Results
02/19/25 02/19/25
16:19 22:55
MCH 25.7 L pg
(27.0-31.0)
MCHC 31.5 L g/dL
(33.0-37.0)
RDW 15.9 H %
(11.5-14.5)
Abs Immat Gran (auto) 0.1 H 10^3/uL
(0-0.05)
Absolute Neuts (auto) 8.3 H 10^3/uL
(1.4-6.5)
Absolute Lymphs (auto) 0.7 L 10^3/uL
(1.2-3.4)
Neutrophils % 87.4 H %
(42.2-75.2)
Lymphocytes % 7.2 L %
(20.5-51.1)
Glucose 109 H mg/dl
(70-99)
Calcium 10.4 H mg/dl
(8.4-10.2)
Urine Ketones 3+ A
(Negative)
Ur Occult Blood Reflex 4+ A
(Negative)
Urine RBC 70-80 A /HPF
(0-2)
Urine Bacteria (Reflex) Few A
(Negative)
Urine Glucose 4+ A
(Negative)
Urine Albumin (Reflex) 2+ A
(Neg - Trace)
02/19/25 16:19
02/19/25 16:19
Vital Signs
Initial and Last Documented VS:
Initial Vital Signs
Temp Pulse Resp BP Pulse Ox
97.7 F 91 20 153/71 93
02/19/25 15:50 02/19/25 15:50 02/19/25 15:50 02/19/25 15:50 02/19/25 15:50
Last Documented Vital Signs
Temp Pulse Resp BP Pulse Ox
98.0 F 70 20 109/60 98
02/20/25 01:07 02/20/25 01:07 02/20/25 01:07 02/20/25 01:07 02/20/25 02:13
*Radiology
Radiology exam reviewed: radiology read reviewed
*Pulse Oximetry
Patient hypoxic: no
*Critical Care Note
Total Time (30-74mins, 75-104mins- exclusive of procedures): Not Applicable
Update Note
Update Note:
CT confirms 2mm distal ureteral stone. No evidence of UTI. Will discharge home, follow up with urology. Given instructions on s/s to return to ED and she is agreeable to plan.
ED Attending Note
-
Portions of this chart may have been created with voice recognition software.� Occasional wrong word or��sound alike� substitutions may have occurred due to the inherent limitations of voice recognition software.
Discharge Plan
Departure
Patient Disposition: Home (Routine Discharge)
Date of Disposition: 02/19/25
Time of Disposition: 23:31
Patient with high blood pressure during this ER visit?: No
Condition: Good
Covid-19: Not Applicable
Discharge Problem:
Kidney stones
Instructions: Kidney stones in adults
Prescriptions:
New
tramadol 50 mg tablet
50 mg PO TID PRN (Reason: Pain) Qty: 10 0RF
No Action
acetaminophen [Tylenol Extra Strength] 500 MG tablet
1,000 mg PO Q6HPRN PRN (Reason: mild pain)
cholecalciferol (vitamin D3) 25 mcg (1,000 unit) Tablet
25 mcg PO BID
loperamide 2 MG capsule
2 mg PO BIDPRN PRN (Reason: diarrhea) Qty: 0 0RF
tramadol 50 mg Tablet
50 mg PO BIDPRN PRN (Reason: severe pains)
lisinopril 2.5 mg Tablet
2.5 mg PO DAILY
polyethylene glycol 3350 [HealthyLax] 17 gram powder in packet
17 g PO DAILYPRN PRN (Reason: constipation)
tramadol 50 mg tablet
25 mg PO BIDPRN PRN (Reason: moderate pains)
Brilinta 90 mg Tablet
90 mg PO BID Qty: 60 11RF
atorvastatin 40 mg Tablet
40 mg PO QPM Qty: 30 11RF
pantoprazole 40 mg Tablet,Delayed Release (Dr/Ec)
40 mg PO DAILY Qty: 30 11RF
aspirin 81 mg Tablet,Chewable
81 mg PO DAILY Qty: 30 11RF
metoprolol succinate 25 mg Tablet Extended Release 24 Hr
25 mg PO DAILY Qty: 30 11RF
dapagliflozin propanediol [Farxiga] 10 mg tablet
10 mg PO DAILY Qty: 30 11RF
Rx Instructions:
BRAND NAME ONLY.
tamsulosin [Flomax] 0.4 mg capsule
0.4 mg PO DAILY 4 Days Qty: 4 0RF
tramadol 50 mg tablet
50 mg PO Q6H PRN (Reason: Pain) Qty: 7 0RF
Referrals:
Bib Pack MD [Active] - Call in 1-3 days for appt
Rogelio Fernandes MD [Family Provider] -
Activity Restrictions/Additional Instructions:
Return to the emergency department immediately for fever/chills, vomiting, worsening pain, or for any further concerns.
Interventions
Interventions:
*Risk Screen - Suicide Last Done: 02/19/25 19:30
*General Assessment Last Done: 02/19/25 15:50
*Neglect/Abuse Screening Last Done: 02/19/25 19:30
*ED- Fall Risk Assessment Last Done: 02/20/25 02:13
*ED COVID-19 Vaccine History Last Done: 02/19/25 19:30
*Nursing Disposition Last Done: 02/20/25 02:13
RM-Ilonlr-Cinkoxitmd Assessment Last Done: 02/19/25 19:30
Discharge Date and Time
Discharge Date/Time: 02/20/25 02:15
Print Language: GREEK
[2025-02-19 23:05] LABS: Urine Albumin 2+ (Neg - Trace); Urine Bilirubin Negative (Negative); Urine Character Clear (Clear); Urine Color Yellow; Urine Glucose 4+ (Negative); Urine Ketone 3+ (Negative); Urine Leukocyte Negative (Negative); Urine Nitrite Negative (Negative); Urine Occult Blood 4+ (Negative); Urine Urobilinogen Negative (Neg - 1+)
[2025-02-19 23:11] LABS: Urine Bacteria Few (Negative); Urine Red Blood Cell 70-80 /HPF (0-2); Urine Squamous Cell 0-2 /LPF (Few); Urine White Cell 0-2 /HPF (0-5)
[2025-02-20 01:07] VITALS: BP 109/60
== END 2025-02-20 02:15 | disposition home or self-care (01) ==
LOC: EMR 15:45
PROVIDERS: Nurse Practitioner; Student in an Organized Health Care Education/Training Program; EMERGENCY PHYSICIAN Emergency Medicine; FAMILY PHYSICIAN Family Medicine
DX: N20.0 Calculus of kidney (principal); I10 Essential (primary) hypertension; E78.00 Pure hypercholesterolemia, unspecified; M81.0 Age-related osteoporosis without current pathological fracture; K21.9 Gastro-esophageal reflux disease without esophagitis; K58.9 Irritable bowel syndrome, unspecified; K52.9 Noninfective gastroenteritis and colitis, unspecified; K22.70 Barrett's esophagus without dysplasia; F32.A Depression, unspecified; Z95.5 Presence of coronary angioplasty implant and graft; Z85.828 Personal history of other malignant neoplasm of skin; Z87.442 Personal history of urinary calculi; Z88.6 Allergy status to analgesic agent
CPT/HCPCS: 99284; 96374; 96375; 96361 ×5; 74176; 80053; 81003; 81015; 83605; 83690; 85025

== ENCOUNTER 2025-11-01 10:56 | Inpatient (IN) | payer MEDICARE, BC, SELFPAY ==
[2025-11-01] VITALS (23 sets, daily range): BP systolic 85–181; BP diastolic 54–97; BMI 24.8
[2025-11-01] MEDS: MORPHINE SULFATE 4 MG IV (05:03)
[2025-11-01] MEDS: ZOFRAN 4 MG IV ×2 (05:03→05:30)
[2025-11-01 05:10] LABS: Hematocrit 38.2 % (37.0-47.0); Hemoglobin 11.7 g/dL (12.0-16.0); Mean Corp Hgb Conc. 30.6 g/dL (33.0-37.0); Mean Corpuscular Volume 84.1 fL (81.0-99.0); Nucleated Red Blood Cells % 0 %; Platelet Count 271 10^3/uL (130-400); Red Cell Dist. Width 15.6 % (11.5-14.5)
--- NOTE | 2025-11-01 05:42 | EDRN ---
pt continues to c/o significant amount of pain and nausea despite medications given - refer to MADELAINE. CATRINA Kwong made aware, in room to assess. Received verbal order from CATRINA Kwong to admin additional 2mg Morphine IV. Refer to MAR.
[2025-11-01] MEDS: MORPHINE SULFATE 2 MG IV (05:44)
[2025-11-01 05:51] LABS: ALT (SGPT) 14 U/L (0-35); AST (SGOT) 18 U/L (14-36); Albumin 4.6 g/dl (3.5-5.0); Alkaline Phosphatase 63 U/L (38-126); Blood Urea Nitrogen 20 mg/dl (7-17); Calcium 9.9 mg/dl (8.4-10.2); Carbon Dioxide 21 mmol/L (22-30); Chloride 110 mmol/L (98-107); Estimated Creatinine Clearance 51 ml/min; Glucose 120 mg/dl (70-99); Lipase 153 U/L (23-300); Potassium 4.0 mmol/L (3.5-5.1); Sodium 140 mmol/L (135-145); Total Protein 7.3 g/dl (6.3-8.2); eGFR > 60.00
--- NOTE | 2025-11-01 06:13 | ED.GENMED ---
History of Present Illness
<Jurgen Kwong Jr., PA-C - Last Filed: 11/01/25 23:08>
General
Chief Complaint: Abdominal Symptoms
Source: patient and ambulance crew
Exam Limitations: none
Time Seen by Provider: 11/01/25 04:36
Nursing documentation reviewed up to this point in time: agreed with
History of Present Illness
History of Present Illness:
85-year-old female past medical history of hypertension hyperlipidemia recurrent kidney stones presenting to the emergency department today with concerns of right sided flank discomfort over the past few hours. Has associated nausea vomiting. She
claims that she does have chronic diarrhea and does have stoma present. There is a small amount of blood in her stool as well. This is somewhat typical for her. She denies any chest pain shortness of breath, fevers.
Past History
<Jurgen Kwong Jr., PA-C - Last Filed: 11/01/25 23:08>
Past History
ED Past Medical History: GERD, HTN, Hypercholesterolemia and Other (Low back pain, osteoporosis, colitis, GERD, irritable bowel syndrome)
ED Past Surgical History: Gynecological
Patient has exhibited threatening behavior?: No
Social History
Tobacco: Non-smoker
Alcohol: None
Drug: None
Personal:
Living: assisted living
Employment: Retired
Family History
Family History: Other
Review of Systems
<NELSON Agustin Jr. Last Filed: 11/01/25 23:08>
Review of Systems
Allergies reviewed?: Yes
All Other Systems: ROS reviewed and negative except as documented in HPI and ROS
Phy Exam
<NELSON Agustin Jr. Last Filed: 11/01/25 23:08>
Physical Exam
Physical Exam:
GENERAL: Alert , in no apparent distress
EYE: pupils equal and reactive
NECK: Supple, no significant adenopathy.
ENT: o/p clr, mmm.
CARDIAC: Regular rate and rhythm .
LUNGS: Clear breath sounds bilaterally, no acute respiratory distress, no wheezes/rales/rhonchi
ABDOMEN: Reproducible discomfort to the right lateral mid abdomen no specific flank pain no pain to McBurney's point no pain to the left side of the abdomen. No guarding or peritoneal signs.
NEUROLOGICAL: Alert and oriented, no focal neuro deficits
SKIN: Warm and dry, skin intact.
MUSCULOSKELETAL: No edema, well perfused.
PSYCH: Normal and appropriate interaction.
Course
<Jurgen Kwong Jr., NELSON - Last Filed: 11/01/25 23:08>
Orders/Labs/Results
Orders:
Orders
11/01/25 04:32
IV Insert/Care/Rem.- Treatment PRN
11/01/25 04:54
Complete Blood Count/With Diff Urgent
Comprehensive Metabolic Panel Urgent
Lipase Urgent
11/01/25 04:58
CT Abd/Pel (IV only)-[facility] only Urgent
Comment:
Reason For Exam: right sided abd pain
Morphine Sulfate 4 mg IV NOW STA
Ondansetron Injectable [Zofran] 4 mg IV NOW STA
11/01/25 05:27
Ondansetron Injectable [Zofran] 4 mg IV NOW STA
11/01/25 05:42
Morphine Sulfate 2 mg .ROUTE .STK-MED ONE
11/01/25 05:44
Morphine Sulfate 2 mg IV NOW STA
11/01/25 05:54
0.9% Sodium Chloride 1000 ml [Nss] 1,000 ml IV BOLUS
11/01/25 Breakfast
NPO
Allow oral meds: Yes
Allow clear liquids: 4hrs prior to procedure
Comment: may have unrestricted clear liquid up to 4 hrs prior to scheduled procedure
NPO
Allow oral meds: Yes
Allow clear liquids: No
11/01/25 06:52
Urinalysis Reflex To Culture Urgent
Date Specimen was Collected: 11/01/25
Time Specimen was Collected: 04:32
Urine Microscopic Reflex Cult Urgent
11/01/25 06:54
Ketorolac [Toradol] 15 mg IV NOW STA
11/01/25 07:01
Prochlorperazine [Compazine] 5 mg IV NOW STA
11/01/25 07:02
CefTRIAXone [Rocephin] 1,000 mg IV NOW STA
11/01/25 09:10
CefTRIAXone [Rocephin] 1,000 mg IV NOW STA
Fentanyl Citrate/Pf [Sublimaze] 25 mcg IV [id number] PRN
Fentanyl Citrate/Pf [Sublimaze] 25 mcg IV PACU-Q5MPRN PRN
Fentanyl Citrate/Pf [Sublimaze] 50 mcg IV PACU-Q5MPRN PRN
Ondansetron Injectable [Zofran] 4 mg IV PACU-ONCEPRN PRN
Prochlorperazine [Compazine] 5 mg IV PACU-ONCEPRN PRN
Notify MD As Directed
Notify physician if: for SDS patients with known or suspected sleep obstructive sleep apnea, monitor in the
PACU.
Notify MD for any apneic/desaturation episodes
O2 Therapy [RESP] Urgent
Titrate/Wean O2 to maintain O2 sat greater than (%): 92
Special Instructions: -Provide supplemental oxygen to achieve O2 sat of 92% or greater.
-After 15 min, may wean O2 and discontinue if patient is able to maintain O2 sat of 92%
or greater during recovery period.
If patient is a discharge home, without oxygen therapy, notify anestheiologist if
unable to maintain O2 SAT of 92% or greater on room air for MD clearance.
11/01/25 09:15
Normosol (Mult Electrolytes) [Normosol-R/Plasmalyte-A] 1,000 ml IV PER PROTOCOL
11/01/25 10:00
Flush (0.9% Sodium Chloride) [Flush (Nss)] See Dose Instructions IV PER PROTOCOL
11/01/25 10:01
Admit/Transfer Patient As Directed
Co-Sign Provider:
Level of Care: Inpatient admission
Assign to:: Medical/Surgical
Physician / Group: John [place]
Diagnosis: Right sided obstructive uropathy
Reason for Hospitalization: Right sided obstructive uropathy
Expected length of stay greater than two midnights?: Yes
ELOS- Estimated Length of Stay in days: 2
I certify the patient meets the requirements for IP care: Yes
11/01/25 10:02
PRN Pain Medication Management As Directed
May give lesser potent ordered pain med per pt: Yes
preference::
Protocol:: Medication orders for pain may be administered in a
manner that supports deferring to patient preference
when the pt is:
- Requesting an ordered lesser potent pain medication.
Least to most potent pain medications are defined
as: acetaminophen < NSAID < tramadol < opioids
(morphine, oxycodone, hydromorphone).
- Requesting a lesser dose of the same medication IF
ORDERED.
- Requesting a less intrusive route of administration
if both routes are prescribed by the provider (PO <
IV).
11/01/25 10:03
Code Status As Directed
Resuscitation Status: Full Code
11/01/25 12:40
0.9% Sodium Chloride 1000 ml [Nss] 1,000 ml IV 100 mls/hr
Acetaminophen [Tylenol] 1,000 mg PO Q6HPRN PRN mild pain
Dextrose 50%-Water [Dextrose 50% Syringe] 12.5 grams IV [id number] PRN
Glucagon [GlucaGen] 1 mg IM PRN PRN
HYDROmorphone [Dilaudid] 0.5 mg IV Q4HPRN PRN
Insulin Aspart Corrective Low [Novolog Flexpen-Low Resistance] See Protocol SC AC
Metoprolol Xl [Toprol Xl] 25 mg PO DAILY
Ondansetron Injectable [Zofran] 4 mg IV Q6HPRN PRN
Oxycodone [Roxicodone] 5 mg PO Q4HPRN PRN
Polyethylene Glycol Powder [Miralax] 17 grams PO DAILYPRN PRN constipation
11/01/25 12:40
Activity As Directed
Activity Level: With Assistance
Bedside Glucose Monitoring As Directed
Frequency: AC&HS
Additional Instructions:: Change to q6h if pt on TPN, tube feeding or not eating
Pneumatic Compression Sleeves As Directed
Type: Knee high
Vital Signs As Directed
Frequency: Per unit guidelines
DX Deep Vein Thrombosis Video Routine
11/01/25 18:00
Atorvastatin [Lipitor] 40 mg PO QPM
11/02/25 06:00
Basic Metabolic Panel IN AM
Complete Blood Count/No Diff IN AM
11/02/25 08:00
Ampicillin/Sulbactam 3 G [Unasyn] 3 gm 0.9% Sodium Chloride 100 ml [Nss] 100 ml IV Q6H
Aspirin Chewable [Low Strength Aspirin] 81 mg PO DAILY
Dapagliflozin [Farxiga] 10 mg PO DAILY
Lisinopril [Zestril] 2.5 mg PO DAILY
Pantoprazole [Protonix] 40 mg PO DAILY
11/03/25 06:00
Basic Metabolic Panel IN AM
Complete Blood Count/No Diff IN AM
Abnormal Lab Results
11/01/25 11/01/25
04:54 06:52
Hgb 11.7 L g/dL
(12.0-16.0)
MCH 25.8 L pg
(27.0-31.0)
MCHC 30.6 L g/dL
(33.0-37.0)
RDW 15.6 H %
(11.5-14.5)
Abs Immat Gran (auto) 0.1 H 10^3/uL
(0-0.05)
Absolute Neuts (auto) 7.6 H 10^3/uL
(1.4-6.5)
Absolute Lymphs (auto) 1.1 L 10^3/uL
(1.2-3.4)
Immature Gran % 0.7 H %
(0-0.5)
Neutrophils % 82.4 H %
(42.2-75.2)
Lymphocytes % 11.6 L %
(20.5-51.1)
Chloride 110 H mmol/L
(98-107)
Carbon Dioxide 21 L mmol/L
(22-30)
BUN 20 H mg/dl
(7-17)
Glucose 120 H mg/dl
(70-99)
Ur Occult Blood Reflex 4+ A
(Negative)
Urine RBC 50-60 A /HPF
(0-2)
Urine Bacteria (Reflex) Few A
(Negative)
Urine Glucose 4+ A
(Negative)
Urine Albumin (Reflex) 2+ A
(Neg - Trace)
11/01/25 04:54
11/01/25 04:54
Vital Signs
Initial and Last Documented VS:
Initial Vital Signs
Temp Pulse Resp BP Pulse Ox
97.4 F 71 20 181/74 95
11/01/25 04:34 11/01/25 04:34 11/01/25 04:34 11/01/25 04:34 11/01/25 04:34
Last Documented Vital Signs
Temp Pulse Resp BP Pulse Ox
98.6 F 82 17 132/67 98
11/01/25 19:15 11/01/25 19:15 11/01/25 19:15 11/01/25 19:15 11/01/25 19:15
<Chantel Zamudio PA-C - Last Filed: 11/01/25 07:13>
Orders/Labs/Results
Orders:
Orders
11/01/25 04:32
IV Insert/Care/Rem.- Treatment PRN
11/01/25 04:54
Complete Blood Count/With Diff Urgent
Comprehensive Metabolic Panel Urgent
Lipase Urgent
11/01/25 04:58
CT Abd/Pel (IV only)-[facility] only Urgent
Comment:
Reason For Exam: right sided abd pain
Morphine Sulfate 4 mg IV NOW STA
Ondansetron Injectable [Zofran] 4 mg IV NOW STA
11/01/25 05:27
Ondansetron Injectable [Zofran] 4 mg IV NOW STA
11/01/25 05:42
Morphine Sulfate 2 mg .ROUTE .STK-MED ONE
11/01/25 05:44
Morphine Sulfate 2 mg IV NOW STA
11/01/25 05:54
0.9% Sodium Chloride 1000 ml [Nss] 1,000 ml IV BOLUS
11/01/25 Breakfast
NPO
Allow oral meds: Yes
Allow clear liquids: 4hrs prior to procedure
Comment: may have unrestricted clear liquid up to 4 hrs prior to scheduled procedure
NPO
Allow oral meds: Yes
Allow clear liquids: No
11/01/25 06:52
Urinalysis Reflex To Culture Urgent
Date Specimen was Collected: 11/01/25
Time Specimen was Collected: 04:32
Urine Microscopic Reflex Cult Urgent
11/01/25 06:54
Ketorolac [Toradol] 15 mg IV NOW STA
11/01/25 07:01
Prochlorperazine [Compazine] 5 mg IV NOW STA
11/01/25 07:02
CefTRIAXone [Rocephin] 1,000 mg IV NOW STA
11/01/25 09:10
CefTRIAXone [Rocephin] 1,000 mg IV NOW STA
Fentanyl Citrate/Pf [Sublimaze] 25 mcg IV [id number] PRN
Fentanyl Citrate/Pf [Sublimaze] 25 mcg IV PACU-Q5MPRN PRN
Fentanyl Citrate/Pf [Sublimaze] 50 mcg IV PACU-Q5MPRN PRN
Ondansetron Injectable [Zofran] 4 mg IV PACU-ONCEPRN PRN
Prochlorperazine [Compazine] 5 mg IV PACU-ONCEPRN PRN
Notify MD As Directed
Notify physician if: for SDS patients with known or suspected sleep obstructive sleep apnea, monitor in the
PACU.
Notify MD for any apneic/desaturation episodes
O2 Therapy [RESP] Urgent
Titrate/Wean O2 to maintain O2 sat greater than (%): 92
Special Instructions: -Provide supplemental oxygen to achieve O2 sat of 92% or greater.
-After 15 min, may wean O2 and discontinue if patient is able to maintain O2 sat of 92%
or greater during recovery period.
If patient is a discharge home, without oxygen therapy, notify anestheiologist if
unable to maintain O2 SAT of 92% or greater on room air for MD clearance.
11/01/25 09:15
Normosol (Mult Electrolytes) [Normosol-R/Plasmalyte-A] 1,000 ml IV PER PROTOCOL
11/01/25 10:00
Flush (0.9% Sodium Chloride) [Flush (Nss)] See Dose Instructions IV PER PROTOCOL
11/01/25 10:01
Admit/Transfer Patient As Directed
Co-Sign Provider:
Level of Care: Inpatient admission
Assign to:: Medical/Surgical
Physician / Group: John [place]
Diagnosis: Right sided obstructive uropathy
Reason for Hospitalization: Right sided obstructive uropathy
Expected length of stay greater than two midnights?: Yes
ELOS- Estimated Length of Stay in days: 2
I certify the patient meets the requirements for IP care: Yes
11/01/25 10:02
PRN Pain Medication Management As Directed
May give lesser potent ordered pain med per pt: Yes
preference::
Protocol:: Medication orders for pain may be administered in a
manner that supports deferring to patient preference
when the pt is:
- Requesting an ordered lesser potent pain medication.
Least to most potent pain medications are defined
as: acetaminophen < NSAID < tramadol < opioids
(morphine, oxycodone, hydromorphone).
- Requesting a lesser dose of the same medication IF
ORDERED.
- Requesting a less intrusive route of administration
if both routes are prescribed by the provider (PO <
IV).
11/01/25 10:03
Code Status As Directed
Resuscitation Status: Full Code
11/01/25 12:40
0.9% Sodium Chloride 1000 ml [Nss] 1,000 ml IV 100 mls/hr
Acetaminophen [Tylenol] 1,000 mg PO Q6HPRN PRN mild pain
Dextrose 50%-Water [Dextrose 50% Syringe] 12.5 grams IV [id number] PRN
Glucagon [GlucaGen] 1 mg IM PRN PRN
HYDROmorphone [Dilaudid] 0.5 mg IV Q4HPRN PRN
Insulin Aspart Corrective Low [Novolog Flexpen-Low Resistance] See Protocol SC AC
Metoprolol Xl [Toprol Xl] 25 mg PO DAILY
Ondansetron Injectable [Zofran] 4 mg IV Q6HPRN PRN
Oxycodone [Roxicodone] 5 mg PO Q4HPRN PRN
Polyethylene Glycol Powder [Miralax] 17 grams PO DAILYPRN PRN constipation
11/01/25 12:40
Activity As Directed
Activity Level: With Assistance
Bedside Glucose Monitoring As Directed
Frequency: AC&HS
Additional Instructions:: Change to q6h if pt on TPN, tube feeding or not eating
Pneumatic Compression Sleeves As Directed
Type: Knee high
Vital Signs As Directed
Frequency: Per unit guidelines
DX Deep Vein Thrombosis Video Routine
11/01/25 18:00
Atorvastatin [Lipitor] 40 mg PO QPM
11/02/25 06:00
Basic Metabolic Panel IN AM
Complete Blood Count/No Diff IN AM
11/02/25 08:00
Ampicillin/Sulbactam 3 G [Unasyn] 3 gm 0.9% Sodium Chloride 100 ml [Nss] 100 ml IV Q6H
Aspirin Chewable [Low Strength Aspirin] 81 mg PO DAILY
Dapagliflozin [Farxiga] 10 mg PO DAILY
Lisinopril [Zestril] 2.5 mg PO DAILY
Pantoprazole [Protonix] 40 mg PO DAILY
11/03/25 06:00
Basic Metabolic Panel IN AM
Complete Blood Count/No Diff IN AM
Abnormal Lab Results
11/01/25 11/01/25
04:54 06:52
Hgb 11.7 L g/dL
(12.0-16.0)
MCH 25.8 L pg
(27.0-31.0)
MCHC 30.6 L g/dL
(33.0-37.0)
RDW 15.6 H %
(11.5-14.5)
Abs Immat Gran (auto) 0.1 H 10^3/uL
(0-0.05)
Absolute Neuts (auto) 7.6 H 10^3/uL
(1.4-6.5)
Absolute Lymphs (auto) 1.1 L 10^3/uL
(1.2-3.4)
Immature Gran % 0.7 H %
(0-0.5)
Neutrophils % 82.4 H %
(42.2-75.2)
Lymphocytes % 11.6 L %
(20.5-51.1)
Chloride 110 H mmol/L
(98-107)
Carbon Dioxide 21 L mmol/L
(22-30)
BUN 20 H mg/dl
(7-17)
Glucose 120 H mg/dl
(70-99)
Ur Occult Blood Reflex 4+ A
(Negative)
Urine RBC 50-60 A /HPF
(0-2)
Urine Bacteria (Reflex) Few A
(Negative)
Urine Glucose 4+ A
(Negative)
Urine Albumin (Reflex) 2+ A
(Neg - Trace)
11/01/25 04:54
11/01/25 04:54
Vital Signs
Initial and Last Documented VS:
Initial Vital Signs
Temp Pulse Resp BP Pulse Ox
97.4 F 71 20 181/74 95
11/01/25 04:34 11/01/25 04:34 11/01/25 04:34 11/01/25 04:34 11/01/25 04:34
Last Documented Vital Signs
Temp Pulse Resp BP Pulse Ox
98.6 F 82 17 132/67 98
11/01/25 19:15 11/01/25 19:15 11/01/25 19:15 11/01/25 19:15 11/01/25 19:15
<Jurgen Kwong Jr., PA-C - Last Filed: 11/01/25 23:08>
MDM/Problems Addressed
MDM/Problems Addressed:
85-year-old female presenting with concerns of abrupt onset over the past few hours of right sided flank discomfort associated nausea and vomiting. Ongoing over the past few hours.
<Jurgen Kwong Jr., PA-C - Last Filed: 11/01/25 23:08>
*Pulse Oximetry
SaO2: 94
Oxygen Mode of Delivery: Room air
<Chantel Zamudio PA-C - Last Filed: 11/01/25 07:13>
*Pulse Oximetry
Patient hypoxic: no
*Critical Care Note
Total Time (30-74mins, 75-104mins- exclusive of procedures): Not Applicable
<Chantel Zamudio PA-C - Last Filed: 11/01/25 07:13>
Update Note
Update Note:
Recieved patient in signout. CT abd pelvis resulted and shows 5.2 mm and 3.2 mm obstructing stone in the right ureter causing moderate right hydroureteronephrosis with striated right renal nephrogram and right ureteral wall thickening suggesting
acute right pyelonephritis and uritis as well as mild acute colitis through descending colon sigmoid and rectum.
Patient was having difficulty providing urine sample but eventually was obtained and does not show any obvious infection.
Pain not well-controlled despite multiple doses of morphine. Will give Toradol 50 mg IV as creatinine clearance is greater than 60. Remains nauseous after 8 mg of Zofran will trial Compazine.
Case was discussed with urology and hospitalist patient will be admitted for pain control and urology evaluation.
ED Attending Note
<Jurgen Kwong Jr., PA-C - Last Filed: 11/01/25 23:08>
-
Portions of this chart may have been created with voice recognition software.� Occasional wrong word or��sound alike� substitutions may have occurred due to the inherent limitations of voice recognition software.
Discharge Plan
Departure
Patient Disposition: Admit
Date of Disposition: 11/01/25
Time of Disposition: 08:32
Presentation/result/management discussed w/ accepting MD/DO: Hospitalist
Discharge Problem:
Calculus, ureteral, Hydronephrosis, Acute flank pain
Interventions
Interventions:
*Risk Screen - Suicide Last Done: 11/01/25 04:34
*General Assessment Last Done: 11/01/25 04:34
*Neglect/Abuse Screening Last Done: 11/01/25 04:34
*ED COVID-19 Vaccine History Last Done: 11/01/25 04:34
*ED Influenza Vaccine History Last Done: 11/01/25 04:34
[facility] Fall Risk Assessment Tool Last Done: 11/01/25 05:46
*Nursing Disposition Last Done: 11/01/25 11:04
GV-Rbeayf-Ktlhevrusr Assessment Last Done: 11/01/25 05:47
Discharge Date and Time
Discharge Date/Time: 11/01/25 11:07
[2025-11-01] MEDS: NSS 1000 IV ×2 (06:25→22:21)
[2025-11-01 07:03] LABS: Urine Character Slightly Cloudy (Clear)
--- NOTE | 2025-11-01 07:12 | EDRN ---
this RN noticed that the pts Sp02 dipped to 88%, this RN notified the provider and placed the pt on 3L NC, Sp02 currently 95%
[2025-11-01] MEDS: TORADOL 15 MG IV (07:18)
[2025-11-01] MEDS: COMPAZINE 5 MG IV (07:18)
[2025-11-01 07:22] LABS: Urine Red Blood Cell 50-60 /HPF (0-2)
[2025-11-01] MEDS: ROCEPHIN 1000 MG IV (09:41)
--- NOTE | 2025-11-01 09:44 | W.PN.URO.CBU ---
Today's Communication / Plan
-
ti op room this am npo sequental teds
Assessment / Plan
-
to op room consetbe needs iv abs and sequentuial tedsdecison foe surgery also spke to gris ortega
Diagnosis
-
Date of Service: November 01, 2025
-
Patient Diagnosis:
rt colic due to obstructing stones rt uret with hydro possible infection
Post Op Day:
Subjective
-
colic no fever chils
Objective
-
Vital Signs
Temp Pulse Resp BP Pulse Ox
98.6 F 77 22 163/69 95
11/01/25 07:12 11/01/25 07:12 11/01/25 07:12 11/01/25 07:12 11/01/25 07:12
Laboratory Results
11/01/25 04:54
11/01/25 04:54
Review of Systems
-
Abdomen/GI: Nausea
: Flank Pain
Physical Exam
-
General - well developed, well nourished, no acute distress
Chest - clear bilaterally
Abdomen - soft, non-tender, positive bowel sounds, no CVAT, no incisional pain or distention
Genitalia - normal
Rectal - normal
Skin - warm & dry with no rash
Neuro - AOx3, no motor deficits
Extremities - no clubbing, no cyanosis, no edema
Incision - clean, dry
Dressing - clean, dry, intact
Counseling
-
to op room needs jhospitalist
Care Review
Data Reviewed
Discussed with: Hospitalist, Nursing and Family
CT Scan: Image Pers Reviewed
--- NOTE | 2025-11-01 10:10 | HPS.HSE ---
Family Physician
-
Family Physician: INTERVIEWE UNKNOWN - PT NOT
Chief Complaint
-
Right-sided flank pain
History of Present Illness
Patient is 85-year-old female with past medical history of type 2 diabetes mellitus, hypertension, hyperlipidemia, history of CAD post JAMIE placement in June 14, chronic pain and narcotic dependence, gastroesophageal reflux disease came to ER with
new onset of right flank pain that started early in the morning. Patient had associated nausea and vomiting. Denied of having any fever episode. Patient does have some reported diarrhea and scant blood in the stool which is chronic in nature per
patient. Denies of any cardiopulmonary complaints.
Medical History
Past Medical History
Past Medical History: Reports Other
Additional Past Medical History:
history of type 2 diabetes mellitus, hypertension, hyperlipidemia, history of CAD post JAMIE placement in June 14, chronic pain and narcotic dependence, gastroesophageal reflux disease
Past Surgical History: Reports Other
Social History
Tobacco: Non-smoker
Alcohol: None
Living: With Family
Family History
Family History: Not pertinent
Allergies / Home Medications
Allergies reflects when Allergies were last updated in [facility].
Home Medications with original date entered in [facility]
Allergy/Medication List:
Allergies
Allergy/AdvReac Type Severity Reaction Status Date / Time
aspirin Allergy Rectal Verified 11/01/25 04:34
Bleeding
Home Medications
acetaminophen 500 mg tablet (Tylenol Extra Strength) 1,000 mg PO Q6HPRN PRN mild pain 05/04/22
cholecalciferol (vitamin D3) 25 mcg (1,000 unit) tablet 25 mcg PO BID Supplement 02/11/24
loperamide 2 mg capsule 2 mg PO BIDPRN PRN diarrhea #0 caps 02/16/24
lisinopril 2.5 mg tablet 2.5 mg PO DAILY Blood Pressure 05/31/24
polyethylene glycol 3350 17 gram oral powder packet (HealthyLax) 17 g PO DAILYPRN PRN constipation 05/31/24
tramadol 50 mg tablet 25 mg PO BIDPRN PRN moderate pains 05/31/24
tramadol 50 mg tablet 50 mg PO BIDPRN PRN severe pains 05/31/24
aspirin 81 mg chewable tablet 81 mg PO DAILY #30 tabs 06/02/24
atorvastatin 40 mg tablet 40 mg PO QPM #30 tabs 06/02/24
dapagliflozin propanediol 10 mg tablet (Farxiga) 10 mg PO DAILY #30 tabs 06/02/24
metoprolol succinate 25 mg tablet,extended release 24 hr 25 mg PO DAILY #30 tabs 06/02/24
pantoprazole 40 mg tablet,delayed release 40 mg PO DAILY #30 tabs 06/02/24
ticagrelor 90 mg tablet (Brilinta) 90 mg PO BID #60 tabs 06/02/24
Review of Systems
-
A 12 point ROS was completed and negative except as noted: Yes
Physical Exam
Vital Signs
Vital Signs
Temp Pulse Resp BP Pulse Ox
98.6 F 77 22 163/69 95
11/01/25 07:12 11/01/25 07:12 11/01/25 07:12 11/01/25 07:12 11/01/25 07:12
Physical Exam
General: Well Developed, Well Nourished and No Apparent Distress
HEENT: NormoCephalic, Moist mucous membranes and Atraumatic
Respiratory: Clear
Cardiac: S1/S2 and Regular Rhythm; No Murmur or Rub
GI: Soft, Non Distended, Normal Bowel Sounds and Tender (Right LQ); No Organomegaly
Rectal: Deferred by Provider
Musculoskeletal: No Clubbing, No Cyanosis and No Edema
Skin: No Rash
Neuro: Nonfocal/grossly intact
Laboratory Results
-
11/01/25 04:54
11/01/25 04:54
Laboratory Results
Total Bilirubin 0.6 mg/dl (0.2-1.3) 11/01/25 04:54
AST 18 U/L (14-36) 11/01/25 04:54
ALT 14 U/L (0-35) 11/01/25 04:54
Alkaline Phosphatase 63 U/L (38-126) 11/01/25 04:54
Lipase 153 U/L (23-300) 11/01/25 04:54
Impression/Plan
-
CT a/p IV contrast
1. MODERATE RIGHT HYDROURETERONEPHROSIS secondary to obstructing calculi in the distal right ureter. Striated right renal nephrogram and right ureteral wall thickening suggesting ACUTE RIGHT PYELONEPHRITIS and ureteritis.
2. MILD ACUTE COLITIS throughout the descending colon, sigmoid colon, and rectum (probably infectious in etiology).
3. Moderate extrahepatic and mild intrahepatic biliary dilatation which appears unchanged.
4. LARGE PARAESOPHAGEAL HIATAL HERNIA.
5. Multiple hepatic lesions which appear unchanged.
6. Previous LUPE-BSO.
7. Mild cardiomegaly.
8. Moderate left convex curvature of the thoracolumbar junction.
1. 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
- Patient came in for new onset of right flank pain and nausea vomiting
- CT abdomen pelvis showing right sided hydroureteronephrosis with obstructing distal right ureteral stone
- UA showing some bacteriuria, patient denies of any significant dysuria/hematuria
- Patient is planning to be taken to the OR by urology for stone removal
- Will maintain patient on IV Unasyn for GI and infection control
- Patient to be maintained n.p.o.
- IV fluids/pain medication/antiemetics ordered
- Admit to medical floor
2. Mild colitis
- CT abdomen pelvis incidentally showing right sided mild colitis, unsure if this is related to right-sided hydroureteronephrosis
- Monitor patient for any overt/profuse diarrhea. Holding on sending stool studies
- Cover patient with Unasyn for simultaneous GI source control
- Patient can be started on diabetic diet postprocedure
3. Type 2 diabetes mellitus
- Continue home medication of Farxiga with insulin sliding scale
4. History of coronary disease
- Patient had a JAMIE stent placement in June 14
- Patient will be resumed back on aspirin and Brilinta postprocedure assuming no clinical concern of ongoing bleed
- Maintain on statin
5. GERD
- Continue pantoprazole home dose
6. Essential hypertension
- Resume home blood pressure medication regimen of Toprol-XL. Hold lisinopril
SCD
Full code
Total time spent : 78 mins
I personally saw and examined the patient.
I have reviewed all diagnostic interpretations and treatment plans as written.
Time includes patient management by me, time spent at the patients bedside, time to review lab and imaging results, discussing patient care, documentation in the medical record, and time spent with the family or caregiver and discussing care plan
with RN/Consultants.
--- NOTE | 2025-11-01 11:03 | EDRN ---
the OR called this RN and verbal report was given
--- NOTE | 2025-11-01 12:47 | W.SUR.POST ---
Surgical Immediate Post Op
Note
Pre Op Diagnosis: rt ureteral stones with obstruction 2 stones
Post Op Diagnosis:
same
Procedure Performed: rt uretroscopy lasr stones attempt basket extraction rt jj stent
Primary Surgeon: carmen
Secondary Surgeons:
Anesthesiadr nix general:
Estimated Blood Loss: 2cc
Fluids:nss
Drains/Shunts: 6 fr 24 cm jj stent o rt
Specimens/Cultures: 0
Doppler/Duplex/Angio (Y/N):
Complications: 0
Operative Findings: 2 stones distal rt uretr high grade obstruction kidney
--- NOTE | 2025-11-01 12:50 | W.SUR.POST ---
Surgical Immediate Post Op
Note
Pre Op Diagnosis: rt ureteral stones with obstruction
Post Op Diagnosis: same
Procedure Performed: rt uretroscopy laser stones attempt basket rt jj stent
Primary Surgeon: carmen
Secondary Surgeons:
Anesthesia: dr nix general
Estimated Blood Loss: 2
Fluids: nss
Drains/Shunts6 ft 24 cm rt jj stent:
Specimens/Cultures:
Doppler/Duplex/Angio (Y/N):
Complications: 0
Operative Findings: high grade rt uretal obstruction due mayela 2 stones in ue=retr
[2025-11-01 12:51] LABS: Glucose - Point of Care 96 mg/dl (70-99)
[2025-11-01] MEDS: SUBLIMAZE 25 MCG IV (13:19)
[2025-11-01] MEDS: TOPROL XL PO (14:00)
[2025-11-01 16:06] LABS: Glucose - Point of Care 139 mg/dl (70-99)
[2025-11-01 21:20] LABS: Glucose - Point of Care 142 mg/dl (70-99)
[2025-11-01] MEDS: LIPITOR 40 MG PO (22:20)
[2025-11-02] MEDS: NSS 1000 IV ×2 (00:41→12:29)
[2025-11-02 03:05] VITALS: BP 108/60
[2025-11-02 07:24] LABS: Hematocrit 31.6 % (37.0-47.0); Hemoglobin 9.6 g/dL (12.0-16.0); Mean Corp Hgb Conc. 30.4 g/dL (33.0-37.0); Mean Corpuscular Volume 82.5 fL (81.0-99.0); Platelet Count 228 10^3/uL (130-400); Red Cell Dist. Width 15.6 % (11.5-14.5)
[2025-11-02 07:45] LABS: Blood Urea Nitrogen 15 mg/dl (7-17); Calcium 8.6 mg/dl (8.4-10.2); Carbon Dioxide 24 mmol/L (22-30); Chloride 108 mmol/L (98-107); Estimated Creatinine Clearance 51 ml/min; Glucose 98 mg/dl (70-99); Potassium 3.6 mmol/L (3.5-5.1); Sodium 137 mmol/L (135-145); eGFR > 60.00
[2025-11-02 08:07] LABS: Glucose - Point of Care 83 mg/dl (70-99)
[2025-11-02 08:12] VITALS: BP 130/66
[2025-11-02] MEDS: FARXIGA 10 MG PO (08:49)
[2025-11-02] MEDS: TOPROL XL 25 MG PO (08:49)
[2025-11-02] MEDS: ZESTRIL 2.5 MG PO (08:50)
[2025-11-02] MEDS: LOW STRENGTH ASPIRIN 81 MG PO (08:50)
[2025-11-02] MEDS: PROTONIX 40 MG PO (08:50)
[2025-11-02] MEDS: UNASYN IV ×3 (08:53→20:00)
--- NOTE | 2025-11-02 10:44 | W.PN.URO.CBU ---
Today's Communication / Plan
-
outpatiet folow up t remve stents plan per hospitalist
Assessment / Plan
-
s/p l;aser and stenting stable afebril heamturi with tent and brlinta may remove daniels any time ready for d/c from [facility] will see as oupatient 2- 4 weeks to remove daniels
Diagnosis
-
Date of Service: November 02, 2025
-
Patient Diagnosis:
Post Op Day:
Patient Diagnosis:
Post Op Day:
Patient Diagnosis:
rt colic due to obstructing stones rt uret with hydro possible infection
Post Op Day:
Subjective
-
no colic feeling better
Objective
-
Vital Signs
Temp Pulse Resp BP Pulse Ox
98.1 F 69 17 130/66 98
11/02/25 08:12 11/02/25 08:49 11/02/25 08:12 11/02/25 08:49 11/02/25 08:12
Intake and Output
11/01/25 11/02/25 11/03/25
06:59 06:59 06:59
Intake Total 540 / 1740 1200 / 1200
Output Total 1005 / 1005
Balance -465 / 735 1200 / 1200
Intake:
Oral fluids 440 / 440
IV fluids (Total) 100 / 1300 1200 / 1200
normosol 100 / 100
Output:
Urine, Daniels 1005 / 1005
Laboratory Results
11/02/25 07:02
11/02/25 07:02
Review of Systems
-
: Bleeding
Physical Exam
-
General - well developed, well nourished, no acute distress
Chest - clear bilaterally
Abdomen - soft, non-tender, positive bowel sounds, no CVAT, no incisional pain or distention
Genitalia - normal
Rectal - normal
Skin - warm & dry with no rash
Neuro - AOx3, no motor deficits
Extremities - no clubbing, no cyanosis, no edema
Incision - clean, dry
Dressing - clean, dry, intact
Counseling
-
ok to d.c when ok withh
Care Review
Data Reviewed
Discussed with: Nursing
[2025-11-02 11:22] VITALS: BP 132/64
[2025-11-02 12:08] LABS: Glucose - Point of Care 90 mg/dl (70-99)
--- NOTE | 2025-11-02 14:07 | CM ---
Met with patient at bedside and spoke w/ sonGerry via phone
Patient was alert and oriented
Pharmacy verified: [facility] @ [address] [place] [address]
Family Physician: Dr. Herrera
IMM benefit explained; form signed @ 1342
Lives alone in an apartment @ the [facility]; per son she has lived there for 12 months; not 4 as patient reported
PLOF: needs assistance w/ personal care; does not ambulate; mobilizes via wheelchair; goes to dining room for meals
SNF stay in 2022; Home PT w/ [facility] in 2022
Facility does not provide transportation
Son requested that transportation be provided; they cannot get her in or out of their cars; ambulance requested
Plan: Discharge to apartment @ [facility] after she voids
--- NOTE | 2025-11-02 14:10 | W.DCSUMMARY ---
Discharge Summary
Discharge Data
Date of Admission: 11/01/25
Date of Discharge: 11/02/25
-
Pending Results: No
Hospital Course
Discharging Physician : Dr John Canada
Disposition :Home
Primary care physician : Unknown
Principal Discharge diagnosis :
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
Chronic Discharge diagnosis :
History of colitis, type unknown
Type 2 diabetes mellitus
Coronary disease
Gastroesophageal reflux disease
Essential hypertension
Physical examination:
GEN: aox3
HEENT: moist mucus membrane,
Chest: Clear to auscultation
Heart: N s1/s2, RRR, no murmur
Abd: N BS, soft, nontender, nondistended,
Neuro: No motor or sensory deficits,
Ext: No cyanosis, Clubbing, edema
Hospital Course :
Patient is-year-old female with no mentioned past medical history came to ER with new onset of right-sided flank pain associated with nausea and vomiting. In ER patient had a CT abdomen pelvis which showed right-sided obstructive ureteral stone
causing right hydroureteronephrosis. Urine was not showing significant pyuria or bacteriuria. No reported overt hematuria. Urology was involved in care and patient was planned for creatinine the OR, patient ended up getting laser lithotripsy and
ureteral J stent placement. Postprocedure patient was monitored in the hospital overnight. Patient was discharged post medical stabilization. Patient has been provided a short prescription of antibiotic for prophylaxis. Patient to follow-up with
urology in office in 4 weeks for stent removal
Important imaging findings :
None
Procedure findings :
None
Discharge Plan
-
Patient Disposition: Home (Routine Discharge)
Discharge Diagnosis/Procedures: Right obstructive uropathy
Condition: Fair
Diet: Diabetic, Carb Controlled
Activity: As tolerated
Driving Restrictions: No driving for 24 hours
Bathing Restrictions: OK to Shower
Referrals:
Bib Pack MD [Active, Urology]
Referral Note: you have a stent in bladder call dr pack urology [id number] to schedule stent removal at office 2- 4 weeks Until stent s out you willhave blood in urine frequency and urgency of urine
UNKNOWN - PT NOT,INTERVIEWE [Family Provider]
Prescriptions:
New
cephalexin 750 mg capsule
750 mg PO Q8H Qty: 15 0RF
Continued
acetaminophen [Tylenol Extra Strength] 500 MG tablet
1,000 mg PO Q6HPRN PRN (Reason: mild pain)
cholecalciferol (vitamin D3) 25 mcg (1,000 unit) Tablet
25 mcg PO BID
loperamide 2 MG capsule
2 mg PO BIDPRN PRN (Reason: diarrhea) Qty: 0 0RF
tramadol 50 mg Tablet
50 mg PO BIDPRN PRN (Reason: severe pains)
lisinopril 2.5 mg Tablet
2.5 mg PO DAILY
polyethylene glycol 3350 [HealthyLax] 17 gram powder in packet
17 g PO DAILYPRN PRN (Reason: constipation)
tramadol 50 mg tablet
25 mg PO BIDPRN PRN (Reason: moderate pains)
ticagrelor [Brilinta] 90 mg Tablet
90 mg PO BID Qty: 60 11RF
atorvastatin 40 mg Tablet
40 mg PO QPM Qty: 30 11RF
pantoprazole 40 mg Tablet,Delayed Release (Dr/Ec)
40 mg PO DAILY Qty: 30 11RF
aspirin 81 mg Tablet,Chewable
81 mg PO DAILY Qty: 30 11RF
metoprolol succinate 25 mg Tablet Extended Release 24 Hr
25 mg PO DAILY Qty: 30 11RF
dapagliflozin propanediol [Farxiga] 10 mg tablet
10 mg PO DAILY Qty: 30 11RF
Rx Instructions:
BRAND NAME ONLY.
Discharge Orders:
Discharge Patient (As Directed); Ordered 11/02/25
Ordered By: John Canada
Discharge Date and Time
Print Language: LATVIAN
[2025-11-02 16:09] VITALS: BP 108/57
--- NOTE | 2025-11-02 17:01 | PTCARENOTE ---
Post void after daniels catheter removal. Catheter removed at 1315. Patient was incontinent of a large amount of blood tinged urine. PVR was 119ml.
[2025-11-02 17:26] LABS: Glucose - Point of Care 97 mg/dl (70-99)
[2025-11-02] MEDS: LIPITOR 40 MG PO (18:29)
[2025-11-02 19:44] VITALS: BP 133/74
--- NOTE | 2025-11-02 21:39 | PTCARENOTE ---
Pt assisted to stretcher with EMT for d/c back to [facility]. PT VSS, no c/o of pain of SOB. Pt voided previous shift, reported she did not have any urge to go at this time. Discharge packet provided, left message for nursing @ this time at
facility.
== END 2025-11-02 21:45 | disposition home or self-care (01) | DRG 660 ==
LOC: 2 SOUTH 10:56
PROVIDERS: ADMITTING PHYSICIAN Hospitalist; EMERGENCY PHYSICIAN Emergency Medicine; OTHER PHYSICIAN Specialist
PROC: 0T768DZ Dilation of Right Ureter with Intraluminal Device, Via Natural or Artificial Opening Endoscopic (ICD-10-PCS; 2025-11-01)
PROC: 0TF68ZZ Fragmentation in Right Ureter, Via Natural or Artificial Opening Endoscopic (ICD-10-PCS; 2025-11-01)
DX: N13.2 Hydronephrosis with renal and ureteral calculous obstruction (principal); F11.20 Opioid dependence, uncomplicated; E11.9 Type 2 diabetes mellitus without complications; K21.9 Gastro-esophageal reflux disease without esophagitis; I10 Essential (primary) hypertension; I25.10 Atherosclerotic heart disease of native coronary artery without angina pectoris; E78.00 Pure hypercholesterolemia, unspecified; K44.9 Diaphragmatic hernia without obstruction or gangrene; K76.9 Liver disease, unspecified; K58.9 Irritable bowel syndrome, unspecified; M81.0 Age-related osteoporosis without current pathological fracture; Z74.01 Bed confinement status; Z79.84 Long term (current) use of oral hypoglycemic drugs; Z87.442 Personal history of urinary calculi; Z88.6 Allergy status to analgesic agent
CPT/HCPCS: 74018; 74177; 76000; 80048; 80053; 81003; 81015; 82962; 83690; 85025; 85027; 96361; 96374; 96375; 96376; 99285; Q9967